=== PATIENT | male | born 1955 | race Caucasian/White ===

== ENCOUNTER 2018-01-01 11:20 | Inpatient (IN) | payer MEDICARE ==
[~2018-01-01] VITALS: Ht 193 cm; Wt 127.0 kg
--- OUTSIDE RECORDS SUMMARY | 2018-01-01 11:22 | XMS REPORT ---
Author Author [facility] [place] Unavailable Care Team Providers Care Head Animal Trainer Name Role Phone STEFANIE ACOSTA Unavailable Unavailable Problems This patient has no known problems. Allergies, Adverse Reactions, Alerts This patient has no known allergies or adverse reactions. Medications This patient has no known medications. Results Test Description Test Time Test Comments Text Results Atomic Results Result Comments POCT-GLUCOSE METER 2016-10-22 13:31:00 POC-GLUCOSE METER (BEAKER) (test vwlv=8013) 119 mg/dL 70-110 TESTED AT [address] [address] POCT-GLUCOSE [id number] 08:43:00* Test Item Value Reference Range Comments POC-GLUCOSE METER (BEAKER) (test ywpj=2303) 137 mg/dL 70-110 TESTED AT [address] [address] POCT-GLUCOSE [id number] 20:56:00* Test Item Value Reference Range Comments POC-GLUCOSE METER (BEAKER) (test uemp=5616) 249 mg/dL 70-110 TESTED AT [address] [address] POCT-GLUCOSE [id number] 16:51:00* Test Item Value Reference Range Comments POC-GLUCOSE METER (BEAKER) (test gkmv=9448) 232 mg/dL 70-110 TESTED AT [address] [address] POCT-GLUCOSE [id number] 11:39:00* Test Item Value Reference Range Comments POC-GLUCOSE METER (BEAKER) (test euyn=2963) 166 mg/dL 70-110 TESTED AT [address] [address] POCT-GLUCOSE [id number] 08:12:00* Test Item Value Reference Range Comments POC-GLUCOSE METER (BEAKER) (test wptv=6358) 70 mg/dL 70-110 TESTED AT [address] [address] POCT-GLUCOSE [id number] 21:56:00* Test Item Value Reference Range Comments POC-GLUCOSE METER (BEAKER) (test zgud=8030) 245 mg/dL 70-110 TESTED AT [facility] [address] [facility] [address] POCT-GLUCOSE [id number] 18:39:00* Test Item Value Reference Range Comments POC-GLUCOSE METER (BEAKER) (test yvnf=4098) 77 mg/dL 70-110 TESTED AT [address] [address] POCT-GLUCOSE [id number] 12:30:00* Test Item Value Reference Range Comments POC-GLUCOSE METER (BEAKER) (test bpjz=1553) 88 mg/dL 70-110 TESTED AT [address] [address] POCT-GLUCOSE [id number] 08:33:00* Test Item Value Reference Range Comments POC-GLUCOSE METER (BEAKER) (test beix=3645) 91 mg/dL 70-110 TESTED AT [address] [address] BASIC METABOLIC [id number] 05:38:00* Test Item Value Reference Range Comments SODIUM (BEAKER) (test wkze=863) 136 meq/L 136-145 POTASSIUM (BEAKER) (test dwvx=581) 4.5 meq/L 3.5-5.1 CHLORIDE (BEAKER) (test zvxh=720) 103 meq/L 98-107 CO2 (BEAKER) (test lhfo=236) 26 meq/L 22-29 BLOOD UREA NITROGEN (BEAKER) (test ljch=946) 12 mg/dL 7-21 CREATININE (BEAKER) (test iqrt=206) 0.75 mg/dL 0.57-1.25 GLUCOSE RANDOM (BEAKER) (test mdin=484) 116 mg/dL 70-105 CALCIUM (BEAKER) (test keij=454) 8.7 mg/dL 8.4-10.2 EGFR (BEAKER) (test sisz=0294) mL/min/1.73 sq m INSUFFICIENT CLINICAL DATA TO CALCULATE ESTIMATED GFR. CBC W/PLT COUNT & AUTO [id number] 05:37:00* Test Item Value Reference Range Comments WHITE BLOOD CELL COUNT (BEAKER) (test vyfm=958) 10.8 K/ L 4.0-10.0 RED BLOOD CELL COUNT (BEAKER) (test ohra=057) 4.11 M/ L 4.20-5.80 HEMOGLOBIN (BEAKER) (test kjqi=885) 13.2 GM/DL 13.0-16.8 HEMATOCRIT (BEAKER) (test xgim=108) 39.9 % 40.0-50.0 MEAN CORPUSCULAR VOLUME (BEAKER) (test fqta=301) 96.9 fL 82.0-98.0 MEAN CORPUSCULAR HEMOGLOBIN (BEAKER) (test thnx=859) 32.2 pg 27.0-33.0 MEAN CORPUSCULAR HEMOGLOBIN CONC (BEAKER) (test caiz=674) 33.2 GM/DL 32.0- 36.0 RED CELL DISTRIBUTION WIDTH (BEAKER) (test silh=094) 11.8 % 10.3-14.2 PLATELET COUNT (BEAKER) (test hljl=229) 475 K/CU MM 150-430 MEAN PLATELET VOLUME (BEAKER) (test iyuv=706) 6.5 fL 6.5-10.5 NUCLEATED RED BLOOD CELLS (BEAKER) (test vgwj=914) 0 /100 WBC 0-0 NEUTROPHILS RELATIVE PERCENT (BEAKER) (test wfza=420) 71 % LYMPHOCYTES RELATIVE PERCENT (BEAKER) (test oiws=386) 21 % MONOCYTES RELATIVE PERCENT (BEAKER) (test szfz=084) 6 % EOSINOPHILS RELATIVE PERCENT (BEAKER) (test omqp=347) 2 % BASOPHILS RELATIVE PERCENT (BEAKER) (test eeqa=714) 0 % NEUTROPHILS ABSOLUTE COUNT (BEAKER) (test hmob=375) 7.63 K/ L 1.80-8.00 LYMPHOCYTES ABSOLUTE COUNT (BEAKER) (test txju=947) 2.28 K/ L 1.48-4.50 MONOCYTES ABSOLUTE COUNT (BEAKER) (test rlct=414) 0.65 K/ L 0.00-1.30 EOSINOPHILS ABSOLUTE COUNT (BEAKER) (test gwgh=766) 0.16 K/ L 0.00-0.50 BASOPHILS ABSOLUTE COUNT (BEAKER) (test sxxo=489) 0.05 K/ L 0.00-0.20 [id number] 05:35:00* Test Item Value Reference Range Comments MAGNESIUM (BEAKER) (test aivz=599) 1.7 mg/dL 1.6-2.6 POCT-GLUCOSE [id number] 22:16:00* Test Item Value Reference Range Comments POC-GLUCOSE METER (BEAKER) (test optz=8892) 117 mg/dL 70-110 TESTED AT [address] [address] POCT-GLUCOSE [id number] 20:09:00* Test Item Value Reference Range Comments POC-GLUCOSE METER (BEAKER) (test rrqs=7795) 210 mg/dL 70-110 TESTED AT [address] [address] POCT-GLUCOSE [id number] 16:15:00* Test Item Value Reference Range Comments POC-GLUCOSE METER (BEAKER) (test gtwd=8036) 80 mg/dL 70-110 TESTED AT [address] [address] POCT-GLUCOSE [id number] 12:26:00* Test Item Value Reference Range Comments POC-GLUCOSE METER (BEAKER) (test peqd=2933) 137 mg/dL 70-110 TESTED AT [place] [id number] BLOOD [id number] 10:00:00* Test Item Value Reference Range Comments CULTURE (BEAKER) (test cyeq=2128) No growth in 5 days BLOOD [id number] 10:00:00* Test Item Value Reference Range Comments CULTURE (BEAKER) (test jdjq=7959) No growth in 5 days POCT-GLUCOSE [id number] 08:23:00* Test Item Value Reference Range Comments POC-GLUCOSE METER (BEAKER) (test gsdc=5229) 185 mg/dL 70-110 TESTED AT [address] [address] BASIC METABOLIC [id number] 05:33:00* Test Item Value Reference Range Comments SODIUM (BEAKER) (test wmmu=222) 134 meq/L 136-145 POTASSIUM (BEAKER) (test yziq=628) 4.4 meq/L 3.5-5.1 CHLORIDE (BEAKER) (test ggey=438) 104 meq/L 98-107 CO2 (BEAKER) (test tdfg=463) 23 meq/L 22-29 BLOOD UREA NITROGEN (BEAKER) (test wtlc=282) 11 mg/dL 7-21 CREATININE (BEAKER) (test xauz=110) 0.78 mg/dL 0.57-1.25 GLUCOSE RANDOM (BEAKER) (test piok=498) 232 mg/dL 70-105 CALCIUM (BEAKER) (test bypd=365) 8.4 mg/dL 8.4-10.2 EGFR (BEAKER) (test uwbr=6099) mL/min/1.73 sq m INSUFFICIENT CLINICAL DATA TO CALCULATE ESTIMATED GFR. CBC (HEMOGRAM ONLY)2016-10-19 05:17:00* Test Item Value Reference Range Comments WHITE BLOOD CELL COUNT (BEAKER) (test kitj=818) 9.9 K/ L 4.0-10.0 RED BLOOD CELL COUNT (BEAKER) (test uchs=750) 3.86 M/ L 4.20-5.80 HEMOGLOBIN (BEAKER) (test ljcx=038) 12.4 GM/DL 13.0-16.8 HEMATOCRIT (BEAKER) (test wmlz=279) 36.7 % 40.0-50.0 MEAN CORPUSCULAR VOLUME (BEAKER) (test vwhs=527) 95.3 fL 82.0-98.0 MEAN CORPUSCULAR HEMOGLOBIN (BEAKER) (test wfxa=699) 32.3 pg 27.0-33.0 MEAN CORPUSCULAR HEMOGLOBIN CONC (BEAKER) (test yudq=851) 33.9 GM/DL 32.0- 36.0 RED CELL DISTRIBUTION WIDTH (BEAKER) (test hzkw=038) 12.5 % 10.3-14.2 PLATELET COUNT (BEAKER) (test qzcp=910) 382 K/CU MM 150-430 MEAN PLATELET VOLUME (BEAKER) (test vlkx=704) 6.8 fL 6.5-10.5 NUCLEATED RED BLOOD CELLS (BEAKER) (test vblx=194) 0 /100 WBC 0-0 0.00POCT-GLUCOSE [id number] 23:05:00* Test Item Value Reference Range Comments POC-GLUCOSE METER (BEAKER) (test skvl=5582) 212 mg/dL 70-110 TESTED AT [address] [address] POCT-GLUCOSE [id number] 17:19:00* Test Item Value Reference Range Comments POC-GLUCOSE METER (BEAKER) (test wedb=7060) 182 mg/dL 70-110 TESTED AT [address] [address] POCT-GLUCOSE [id number] 11:56:00* Test Item Value Reference Range Comments POC-GLUCOSE METER (BEAKER) (test ueek=3812) 132 mg/dL 70-110 TESTED AT [facility] [address] [facility] [address] POCT-GLUCOSE [id number] 07:35:00* Test Item Value Reference Range Comments POC-GLUCOSE METER (BEAKER) (test kgha=2309) 107 mg/dL 70-110 TESTED AT [address] [address] BASIC METABOLIC [id number] 04:09:00* Test Item Value Reference Range Comments SODIUM (BEAKER) (test ziaz=489) 134 meq/L 136-145 POTASSIUM (BEAKER) (test cbeq=746) 4.5 meq/L 3.5-5.1 CHLORIDE (BEAKER) (test gkes=909) 103 meq/L 98-107 CO2 (BEAKER) (test dzlo=710) 23 meq/L 22-29 BLOOD UREA NITROGEN (BEAKER) (test vfmc=036) 12 mg/dL 7-21 CREATININE (BEAKER) (test jsst=794) 0.78 mg/dL 0.57-1.25 GLUCOSE RANDOM (BEAKER) (test jqiq=399) 155 mg/dL 70-105 CALCIUM (BEAKER) (test rfpb=925) 8.4 mg/dL 8.4-10.2 EGFR (BEAKER) (test hhqw=5682) mL/min/1.73 sq m INSUFFICIENT CLINICAL DATA TO CALCULATE ESTIMATED GFR. [id number] 04:08:00* Test Item Value Reference Range Comments MAGNESIUM (BEAKER) (test olkb=396) 1.7 mg/dL 1.6-2.6 CBC (HEMOGRAM ONLY)2016-10-18 03:57:00* Test Item Value Reference Range Comments WHITE BLOOD CELL COUNT (BEAKER) (test ssrh=738) 9.2 K/ L 4.0-10.0 RED BLOOD CELL COUNT (BEAKER) (test cvfg=999) 3.93 M/ L 4.20-5.80 HEMOGLOBIN (BEAKER) (test nhpc=828) 12.4 GM/DL 13.0-16.8 HEMATOCRIT (BEAKER) (test huyr=069) 37.9 % 40.0-50.0 MEAN CORPUSCULAR VOLUME (BEAKER) (test tdih=617) 96.5 fL 82.0-98.0 MEAN CORPUSCULAR HEMOGLOBIN (BEAKER) (test tqvj=675) 31.7 pg 27.0-33.0 MEAN CORPUSCULAR HEMOGLOBIN CONC (BEAKER) (test vjff=270) 32.8 GM/DL 32.0- 36.0 RED CELL DISTRIBUTION WIDTH (BEAKER) (test gboq=152) 11.6 % 10.3-14.2 PLATELET COUNT (BEAKER) (test qbhu=789) 351 K/CU MM 150-430 MEAN PLATELET VOLUME (BEAKER) (test ibww=654) 7.0 fL 6.5-10.5 NUCLEATED RED BLOOD CELLS (BEAKER) (test fzdv=470) 0 /100 WBC 0-0 0.00POCT-GLUCOSE [id number] 22:21:00* Test Item Value Reference Range Comments POC-GLUCOSE METER (BEAKER) (test xmja=3516) 152 mg/dL 70-110 TESTED AT [place] [address] POCT-GLUCOSE [id number] 17:41:00* Test Item Value Reference Range Comments POC-GLUCOSE METER (BEAKER) (test tfkt=3682) 114 mg/dL 70-110 TESTED AT [place] [address] POCT-GLUCOSE [id number] 11:52:00* Test Item Value Reference Range Comments POC-GLUCOSE METER (BEAKER) (test hqdw=6819) 149 mg/dL 70-110 TESTED AT [place] [address] POCT-GLUCOSE [id number] 07:34:00* Test Item Value Reference Range Comments POC-GLUCOSE METER (BEAKER) (test kozf=5780) 85 mg/dL 70-110 TESTED AT [place] [address] BASIC METABOLIC [id number] 03:51:00* Test Item Value Reference Range Comments SODIUM (BEAKER) (test amdf=486) 132 meq/L 136-145 POTASSIUM (BEAKER) (test fapi=278) 4.4 meq/L 3.5-5.1 CHLORIDE (BEAKER) (test ozrs=267) 102 meq/L 98-107 CO2 (BEAKER) (test mhpf=005) 21 meq/L 22-29 BLOOD UREA NITROGEN (BEAKER) (test dneh=504) 12 mg/dL 7-21 CREATININE (BEAKER) (test fpts=624) 0.77 mg/dL 0.57-1.25 GLUCOSE RANDOM (BEAKER) (test yukk=406) 179 mg/dL 70-105 CALCIUM (BEAKER) (test fpcj=105) 8.1 mg/dL 8.4-10.2 EGFR (BEAKER) (test gprl=2063) mL/min/1.73 sq m INSUFFICIENT CLINICAL DATA TO CALCULATE ESTIMATED GFR. CBC (HEMOGRAM ONLY)2016-10-17 03:46:00* Test Item Value Reference Range Comments WHITE BLOOD CELL COUNT (BEAKER) (test zqxd=003) 9.8 K/ L 4.0-10.0 RED BLOOD CELL COUNT (BEAKER) (test adzv=824) 3.70 M/ L 4.20-5.80 HEMOGLOBIN (BEAKER) (test lecb=498) 12.2 GM/DL 13.0-16.8 HEMATOCRIT (BEAKER) (test hjhf=129) 35.1 % 40.0-50.0 MEAN CORPUSCULAR VOLUME (BEAKER) (test uzzl=619) 94.9 fL 82.0-98.0 MEAN CORPUSCULAR HEMOGLOBIN (BEAKER) (test xyfg=564) 33.0 pg 27.0-33.0 MEAN CORPUSCULAR HEMOGLOBIN CONC (BEAKER) (test bayr=940) 34.7 GM/DL 32.0- 36.0 RED CELL DISTRIBUTION WIDTH (BEAKER) (test mebu=042) 12.7 % 10.3-14.2 PLATELET COUNT (BEAKER) (test awta=910) 289 K/CU MM 150-430 MEAN PLATELET VOLUME (BEAKER) (test ixad=625) 7.5 fL 6.5-10.5 NUCLEATED RED BLOOD CELLS (BEAKER) (test ttwv=248) 0 /100 WBC 0-0 0.00POCT-GLUCOSE [id number] 22:39:00* Test Item Value Reference Range Comments POC-GLUCOSE METER (BEAKER) (test izxs=6365) 233 mg/dL 70-110 TESTED AT [facility] [address] [facility] [address] VANCOMYCIN LEVEL, [id number] 22:20:00* Test Item Value Reference Range Comments VANCOMYCIN TROUGH (BEAKER) (test lgkg=228) 13.0 ug/mL 10.0-20.0 POCT-GLUCOSE [id number] 17:18:00* Test Item Value Reference Range Comments POC-GLUCOSE METER (BEAKER) (test yvcd=9395) 184 mg/dL 70-110 TESTED AT [place] [address] POCT-GLUCOSE [id number] 15:16:00* Test Item Value Reference Range Comments POC-GLUCOSE METER (BEAKER) (test evaa=8769) 80 mg/dL 70-110 TESTED AT [place] [address] [id number] 14:18:00* Test Item Value Reference Range Comments ACTIVATED CLOTTING TIME (BEAKER) (test acnm=280) 229 sec TESTED AT [place] [address] [id number] 14:18:00* Test Item Value Reference Range Comments ACTIVATED CLOTTING TIME (BEAKER) (test ewla=819) 533 sec TESTED AT [place] [address] POCT-GLUCOSE [id number] 12:34:00* Test Item Value Reference Range Comments POC-GLUCOSE METER (BEAKER) (test brgt=7239) 67 mg/dL 70-110 TESTED AT [place] [address] POCT-GLUCOSE [id number] 08:13:00* Test Item Value Reference Range Comments POC-GLUCOSE METER (BEAKER) (test eufc=7667) 71 mg/dL 70-110 TESTED AT [place] [address] POCT-GLUCOSE [id number] 07:20:00* Test Item Value Reference Range Comments POC-GLUCOSE METER (BEAKER) (test ozck=0651) 141 mg/dL 70-110 TESTED AT [place] [address] BASIC METABOLIC [id number] 05:08:00* Test Item Value Reference Range Comments SODIUM (BEAKER) (test lbqg=569) 135 meq/L 136-145 POTASSIUM (BEAKER) (test gogp=431) 3.4 meq/L 3.5-5.1 CHLORIDE (BEAKER) (test jfkp=829) 103 meq/L 98-107 CO2 (BEAKER) (test vxgn=042) 22 meq/L 22-29 BLOOD UREA NITROGEN (BEAKER) (test dvxd=071) 14 mg/dL 7-21 CREATININE (BEAKER) (test utbq=659) 0.71 mg/dL 0.57-1.25 GLUCOSE RANDOM (BEAKER) (test bwln=677) 45 mg/dL 70-105 CALCIUM (BEAKER) (test bmif=666) 8.2 mg/dL 8.4-10.2 EGFR (BEAKER) (test ayst=2399) mL/min/1.73 sq m INSUFFICIENT CLINICAL DATA TO CALCULATE ESTIMATED GFR. VANCOMYCIN LEVEL, [id number] 05:06:00* Test Item Value Reference Range Comments VANCOMYCIN RANDOM (BEAKER) (test xnij=305) 17.5 ug/mL Reference Range: No [id number] 05:05:00* Test Item Value Reference Range Comments MAGNESIUM (BEAKER) (test legg=541) 1.7 mg/dL 1.6-2.6 CBC W/PLT COUNT & AUTO [id number] 04:39:00* Test Item Value Reference Range Comments WHITE BLOOD CELL COUNT (BEAKER) (test sktb=572) 9.3 K/ L 4.0-10.0 RED BLOOD CELL COUNT (BEAKER) (test ezpx=084) 3.95 M/ L 4.20-5.80 HEMOGLOBIN (BEAKER) (test lqou=724) 12.5 GM/DL 13.0-16.8 HEMATOCRIT (BEAKER) (test veok=807) 37.8 % 40.0-50.0 MEAN CORPUSCULAR VOLUME (BEAKER) (test arna=068) 95.9 fL 82.0-98.0 MEAN CORPUSCULAR HEMOGLOBIN (BEAKER) (test lyoo=122) 31.8 pg 27.0-33.0 MEAN CORPUSCULAR HEMOGLOBIN CONC (BEAKER) (test hcnp=236) 33.1 GM/DL 32.0- 36.0 RED CELL DISTRIBUTION WIDTH (BEAKER) (test dunj=338) 11.7 % 10.3-14.2 PLATELET COUNT (BEAKER) (test zcbg=887) 302 K/CU MM 150-430 MEAN PLATELET VOLUME (BEAKER) (test ouep=884) 7.3 fL 6.5-10.5 NUCLEATED RED BLOOD CELLS (BEAKER) (test tnvz=038) 0 /100 WBC 0-0 NEUTROPHILS RELATIVE PERCENT (BEAKER) (test wsmi=387) 71 % LYMPHOCYTES RELATIVE PERCENT (BEAKER) (test iyuz=069) 20 % MONOCYTES RELATIVE PERCENT (BEAKER) (test gmtv=526) 8 % EOSINOPHILS RELATIVE PERCENT (BEAKER) (test qwvt=027) 0 % BASOPHILS RELATIVE PERCENT (BEAKER) (test wrze=206) 1 % NEUTROPHILS ABSOLUTE COUNT (BEAKER) (test hrcv=595) 6.64 K/ L 1.80-8.00 LYMPHOCYTES ABSOLUTE COUNT (BEAKER) (test nhia=598) 1.86 K/ L 1.48-4.50 MONOCYTES ABSOLUTE COUNT (BEAKER) (test ctqm=342) 0.74 K/ L 0.00-1.30 EOSINOPHILS ABSOLUTE COUNT (BEAKER) (test xvaf=127) 0.04 K/ L 0.00-0.50 BASOPHILS ABSOLUTE COUNT (BEAKER) (test wkmi=130) 0.05 K/ L 0.00-0.20 0.00POCT-GLUCOSE [id number] 22:02:00* Test Item Value Reference Range Comments POC-GLUCOSE METER (BEAKER) (test hkwm=6098) 140 mg/dL 70-110 TESTED AT [address] [address] POCT-GLUCOSE [id number] 19:21:00* Test Item Value Reference Range Comments POC-GLUCOSE METER (BEAKER) (test ksph=7888) 113 mg/dL 70-110 TESTED AT [address] [address] POCT-GLUCOSE [id number] 16:23:00* Test Item Value Reference Range Comments POC-GLUCOSE METER (BEAKER) (test rixv=5833) 206 mg/dL 70-110 TESTED AT [address] [address] POCT-GLUCOSE [id number] 12:56:00* Test Item Value Reference Range Comments POC-GLUCOSE METER (BEAKER) (test ruky=0005) 205 mg/dL 70-110 TESTED AT [address] [address] POCT-GLUCOSE [id number] 12:56:00* Test Item Value Reference Range Comments POC-GLUCOSE METER (BEAKER) (test mjhr=8020) 71 mg/dL 70-110 TESTED AT [facility] [address] [facility] [address] VANCOMYCIN LEVEL, [id number] 11:43:00* Test Item Value Reference Range Comments VANCOMYCIN TROUGH (BEAKER) (test zjkz=315) 9.2 ug/mL 10.0-20.0 Please draw vancomycin trough level @930, prior to administering the 1000 dose. Thanks.CBC (HEMOGRAM ONLY)2016-10-15 04:50:00* Test Item Value Reference Range Comments WHITE BLOOD CELL COUNT (BEAKER) (test qegr=103) 10.8 K/ L 4.0-10.0 RED BLOOD CELL COUNT (BEAKER) (test cpya=958) 3.95 M/ L 4.20-5.80 HEMOGLOBIN (BEAKER) (test cnqu=896) 12.8 GM/DL 13.0-16.8 HEMATOCRIT (BEAKER) (test xpru=618) 37.8 % 40.0-50.0 MEAN CORPUSCULAR VOLUME (BEAKER) (test oekh=361) 95.7 fL 82.0-98.0 MEAN CORPUSCULAR HEMOGLOBIN (BEAKER) (test uvbw=403) 32.4 pg 27.0-33.0 MEAN CORPUSCULAR HEMOGLOBIN CONC (BEAKER) (test efse=724) 33.9 GM/DL 32.0- 36.0 RED CELL DISTRIBUTION WIDTH (BEAKER) (test knro=183) 11.7 % 10.3-14.2 PLATELET COUNT (BEAKER) (test okew=038) 282 K/CU MM 150-430 MEAN PLATELET VOLUME (BEAKER) (test uiox=368) 7.5 fL 6.5-10.5 NUCLEATED RED BLOOD CELLS (BEAKER) (test odpe=721) 0 /100 WBC 0-0 0.00BASIC METABOLIC [id number] 04:43:00* Test Item Value Reference Range Comments SODIUM (BEAKER) (test aazn=960) 134 meq/L 136-145 POTASSIUM (BEAKER) (test bdcu=612) 3.9 meq/L 3.5-5.1 CHLORIDE (BEAKER) (test zucn=068) 101 meq/L 98-107 CO2 (BEAKER) (test sxii=455) 25 meq/L 22-29 BLOOD UREA NITROGEN (BEAKER) (test lmyl=427) 23 mg/dL 7-21 CREATININE (BEAKER) (test ccsg=562) 0.80 mg/dL 0.57-1.25 GLUCOSE RANDOM (BEAKER) (test dbrb=285) 76 mg/dL 70-105 CALCIUM (BEAKER) (test eofl=349) 8.5 mg/dL 8.4-10.2 EGFR (BEAKER) (test fqth=9860) mL/min/1.73 sq m INSUFFICIENT CLINICAL DATA TO CALCULATE ESTIMATED GFR. [id number] 04:41:00* Test Item Value Reference Range Comments MAGNESIUM (BEAKER) (test ccuf=939) 1.5 mg/dL 1.6-2.6 POCT-GLUCOSE [id number] 22:22:00* Test Item Value Reference Range Comments POC-GLUCOSE METER (BEAKER) (test iifg=5379) 122 mg/dL 70-110 TESTED AT [facility] [address] [place] [address] URINALYSIS W/ [id number] 19:53:00* Test Item Value Reference Range Comments COLOR (BEAKER) (test lbjm=175) Yellow CLARITY (BEAKER) (test rngn=900) Hazy SPECIFIC GRAVITY UA (BEAKER) (test rbbi=571) 1.020 1.001-1.035 PH UA (BEAKER) (test qstl=601) 5.0 5.0-8.0 PROTEIN UA (BEAKER) (test uhwz=562) 30 mg/dL Negative GLUCOSE UA (BEAKER) (test huvw=284) 300 mg/dL Negative KETONES UA (BEAKER) (test rght=551) Trace Negative BILIRUBIN UA (BEAKER) (test rbeq=767) Negative Negative BLOOD UA (BEAKER) (test qcfa=394) Negative Negative NITRITE UA (BEAKER) (test bvic=102) Negative Negative LEUKOCYTE ESTERASE UA (BEAKER) (test zmsv=692) Negative Negative UROBILINOGEN UA (BEAKER) (test mtjv=928) 0.2 mg/dL 0.2-1.0 RBC UA (BEAKER) (test iaoa=808) 0 /HPF WBC UA (BEAKER) (test gtuo=722) 1 /HPF MUCUS (BEAKER) (test mneu=6769) Rare SQUAMOUS EPITHELIAL (BEAKER) (test zlec=477) 1 /HPF HYALINE CASTS (BEAKER) (test umjf=860) 3 /LPF SOURCE(BEAKER) (test cfsv=3685) POCT-GLUCOSE [id number] 17:36:00* Test Item Value Reference Range Comments POC-GLUCOSE METER (BEAKER) (test arvq=5915) 213 mg/dL 70-110 TESTED AT [facility] [address] [facility] [address] SODIUM, RANDOM [id number] 17:30:00* Test Item Value Reference Range Comments SODIUM URINE (BEAKER) (test dtpv=131) < meq/L Reference Range: No NormalsHEMOGLOBIN [id number] 14:22:00* Test Item Value Reference Range Comments HEMOGLOBIN A1C (BEAKER) (test blfv=000) 13.7 % 4.3-6.1 TROPONIN [id number] 13:31:00* Test Item Value Reference Range Comments TROPONIN I (BEAKER) (test zqbn=737) 0.50 ng/mL 0.00-0.03 Effective 07/17/2014: Reference Range ChangeNew: 0.00-0.03 Previous 0.00- 0.15Troponin I (TnI) levels must be interpreted in the context of the presenting symptoms and the clinical findings. Elevated TnI levels indicate myocardial damage, but are not specific for ischemic heart disease. Elevated TnI levels are seen in patients with other cardiac conditions (including myocarditis and congestive heart failure), and slight TnI elevations occur in patients with other conditions, including sepsis, renal failure, acidosis, acute neurological disease, and persistent tachyarrhythmia.POCT-GLUCOSE [id number] 09:47:00* Test Item Value Reference Range Comments POC-GLUCOSE METER (BEAKER) (test ilnl=9309) 235 mg/dL 70-110 TESTED AT [facility] [address] [facility] [address] HEMOGLOBIN [id number] 08:29:00* Test Item Value Reference Range Comments HEMOGLOBIN A1C (BEAKER) (test uxio=868) 13.5 % 4.3-6.1 TROPONIN [id number] 06:13:00* Test Item Value Reference Range Comments TROPONIN I (BEAKER) (test gtem=321) 0.85 ng/mL 0.00-0.03 Effective 07/17/2014: Reference Range ChangeNew: 0.00-0.03 Previous 0.00- 0.15Troponin I (TnI) levels must be interpreted in the context of the presenting symptoms and the clinical findings. Elevated TnI levels indicate myocardial damage, but are not specific for ischemic heart disease. Elevated TnI levels are seen in patients with other cardiac conditions (including myocarditis and congestive heart failure), and slight TnI elevations occur in patients with other conditions, including sepsis, renal failure, acidosis, acute neurological disease, and persistent tachyarrhythmia.CREATINE KINASE (CK) , TOTAL AND [id number] 06:03:00* Test Item Value Reference Range Comments CREATINE KINASE TOTAL (CRISTYAKER) (test cift=440) 127 U/L 29-200 CREATINE KINASE-MB (BEAKER) (test hktf=882) 6.0 ng/mL 0.0-6.6 CREATINE KINASE-MB INDEX (BEAKER) (test ipyt=901) 4.7 % Effective 07/17/2014: CK-MB Reference Range ChangeNew: 0.0-6.6 Previous: 0.0- 4.9CK-MB Reference Range:<6.7 Normal6.7-10.0 Borderline>10.0 AbnormalPT/[id number] 05:58:00* Test Item Value Reference Range Comments PROTIME (BEAKER) (test inrz=304) 14.2 seconds 11.7-14.7 INR (BEAKER) (test ezog=425) 1.1 <=5.9 PARTIAL THROMBOPLASTIN TIME (BEAKER) (test bphi=982) 36.5 seconds 22.5-36.0 RECOMMENDED COUMADIN/WARFARIN INR THERAPY RANGESSTANDARD DOSE: 2.0 - 3.0 Includes: PROPHYLAXIS for venous thrombosis, systemic embolization; TREATMENT for venous thrombosis and/or pulmonary embolus.HIGH RISK: Target INR is 2.5-3.5 for patients with mechanical heart valves.CBC W/PLT COUNT & AUTO [id number] 05:58:00* Test Item Value Reference Range Comments WHITE BLOOD CELL COUNT (BEAKER) (test uuxu=261) 14.9 K/ L 4.0-10.0 RED BLOOD CELL COUNT (BEAKER) (test lnix=921) 4.55 M/ L 4.20-5.80 HEMOGLOBIN (BEAKER) (test npni=252) 14.0 GM/DL 13.0-16.8 HEMATOCRIT (BEAKER) (test qidm=556) 43.5 % 40.0-50.0 MEAN CORPUSCULAR VOLUME (BEAKER) (test pvoz=531) 95.6 fL 82.0-98.0 MEAN CORPUSCULAR HEMOGLOBIN (BEAKER) (test rarv=819) 30.8 pg 27.0-33.0 MEAN CORPUSCULAR HEMOGLOBIN CONC (BEAKER) (test auvt=102) 32.2 GM/DL 32.0- 36.0 RED CELL DISTRIBUTION WIDTH (BEAKER) (test hunt=038) 11.7 % 10.3-14.2 PLATELET COUNT (BEAKER) (test hpja=160) 342 K/CU MM 150-430 MEAN PLATELET VOLUME (BEAKER) (test milz=096) 8.0 fL 6.5-10.5 NUCLEATED RED BLOOD CELLS (BEAKER) (test kuee=620) 0 /100 WBC 0-0 NEUTROPHILS RELATIVE PERCENT (BEAKER) (test tjbo=561) 78 % LYMPHOCYTES RELATIVE PERCENT (BEAKER) (test vbxr=564) 13 % MONOCYTES RELATIVE PERCENT (BEAKER) (test alki=807) 9 % EOSINOPHILS RELATIVE PERCENT (BEAKER) (test onyl=638) 0 % BASOPHILS RELATIVE PERCENT (BEAKER) (test jlix=287) 0 % NEUTROPHILS ABSOLUTE COUNT (BEAKER) (test fugs=237) 11.60 K/ L 1.80-8.00 LYMPHOCYTES ABSOLUTE COUNT (BEAKER) (test txsm=528) 1.89 K/ L 1.48-4.50 MONOCYTES ABSOLUTE COUNT (BEAKER) (test svsz=126) 1.39 K/ L 0.00-1.30 EOSINOPHILS ABSOLUTE COUNT (BEAKER) (test fkxf=788) 0.00 K/ L 0.00-0.50 BASOPHILS ABSOLUTE COUNT (BEAKER) (test gegx=055) 0.03 K/ L 0.00-0.20 0.00COMPREHENSIVE METABOLIC [id number] 05:57:00* Test Item Value Reference Range Comments TOTAL PROTEIN (BEAKER) (test itmy=626) 6.1 gm/dL 6.0-8.3 ALBUMIN (BEAKER) (test xmxn=6739) 3.1 g/dL 3.5-5.0 ALKALINE PHOSPHATASE (BEAKER) (test vpci=314) 63 U/L 40-150 BILIRUBIN TOTAL (BEAKER) (test oacl=724) 1.0 mg/dL 0.2-1.2 SODIUM (BEAKER) (test ihgi=873) 130 meq/L 136-145 POTASSIUM (BEAKER) (test hysk=232) 5.1 meq/L 3.5-5.1 CHLORIDE (BEAKER) (test yglc=006) 97 meq/L 98-107 CO2 (BEAKER) (test tdiz=104) 22 meq/L 22-29 BLOOD UREA NITROGEN (BEAKER) (test kscz=697) 33 mg/dL 7-21 CREATININE (BEAKER) (test txup=966) 1.35 mg/dL 0.57-1.25 GLUCOSE RANDOM (BEAKER) (test hwai=102) 391 mg/dL 70-105 CALCIUM (BEAKER) (test rnlg=064) 8.8 mg/dL 8.4-10.2 AST (SGOT) (BEAKER) (test kmic=022) 12 U/L 5-34 ALT (SGPT) (BEAKER) (test mrxp=079) 10 U/L 6-55 EGFR (BEAKER) (test ltmr=3626) mL/min/1.73 sq m INSUFFICIENT CLINICAL DATA TO CALCULATE ESTIMATED GFR. POCT-GLUCOSE [id number] 03:09:00* Test Item Value Reference Range Comments POC-GLUCOSE METER (BEAKER) (test vpxb=5332) 375 mg/dL 70-110 TESTED AT [facility] [address] [facility] [address]
--- OUTSIDE RECORDS SUMMARY | 2018-01-01 11:22 | XMS REPORT | Clinical Summary ---
Author Author SWAPNA [facility] Address Unknown Phone Unavailable Care Team Providers Care Mortgage Professional Name Role Phone PCP Unavailable Allergies No Known Allergies Current Medications Prescription Sig. Disp. Refills Start End Date Status Date metFORMIN (GLUCOPHAGE) Take 1,000 mg by mouth 2 Active 1000 MG tablet (two) times daily with breakfast and dinner. aspirin 81 MG EC tablet Take 81 mg by mouth Active daily. omega-3 fatty Take by mouth daily. Active acids-vitamin E 1,000 mg Cap insulin glargine (LANTUS) Use as directed. 10 mL 0 10/22/19 Active 100 unit/mL injection 17 nitroglycerin (NITROSTAT) One tablet every 5 90 tablet 0 10/22/19 0.4 MG SL tablet minutes for maximum of 3 17 18 doses in 15 minutes; Contact physician after the first dose.. insulin lispro (HUMALOG) Inject 0-16 Units 10 mL 0 10/22/19 100 unit/mL injection subcutaneously as needed 17 18 (High blood sugar). 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 10/22/2016 pectoris ([facility]), s/p PCI during this admission DM type 2 (diabetes mellitus, type 2) ([facility]) 10/16/2016 LEXIE (acute kidney injury) ([facility]) 10/16/2016 CKD (chronic kidney disease) 10/16/2016 Cellulitis of leg 10/16/2016 Severe sepsis ([facility]) 10/16/2016 Lichenification 10/16/2016 Bradycardia 10/16/2016 Elevated troponin 10/16/2016 Complete heart block ([facility]) 10/14/2016 Social History Tobacco Use Types Packs/Day Years Used Date Current Every Day Smoker 2 Tobacco Cessation: Ready to Quit: No; Counseling Given: No Alcohol Use Drinks/Week oz/Week Comments No Sex Assigned at Date Recorded Not on file Last Filed Vital Signs Not on file Plan of Treatment Not on file Implants Implanted Type Area Pre K Lead Teacher Device Expiration Model / Identifier Date Serial / Lot Closure Sys Perclose Progl 6fr Cardiovasc N/A: Ganesh AGUILLON LAB:VASC 04/29/2018 04883-01 / [id number] - [id number] ular DEV / Implanted: Qty: 1 on 10/16/2016 by [id number] Segundo Camarillo MD Tyrx Absorbable Antibacterial Cardiovasc Left: [employer] 2016 [id number] / Envelope ular Chest / Implanted: Qty: 1 on 10/19/2016 by [employer] [id number] Segundo Camarillo MD Ingevity Mri Pacemaker N/A: Heart [place] 10/08/2018 [id number] / Implanted: Qty: 1 on 10/19/2016 by [employer] [id number] / Segundo Camarillo MD Ingevity Mri Pacemaker N/A: Heart [place] 10/05/2018 [id number] / Implanted: Qty: 1 on 10/19/2016 by [employer] [id number] / Segundo Camarillo MD Accolade Mri Dr Pacemakers N/A: Chest [place]ON 09/15/2018 L311 / Implanted: Qty: 1 on 10/19/2016 by [employer] I [id number] / Segundo Camarillo MD Results Not on fileafter 12/31/2016
[2018-01-01 12:40] LABS: BASOPHILS # (AUTO) 0.1 (0.0-0.1); BASOPHILS % 0.8 % (0.0-1.0); EOSINOPHILS # (AUTO) 0.1 (0.0-0.4); EOSINOPHILS % 1.3 % (0.0-6.0); HEMATOCRIT 35.6 % (38.2-49.6); HEMOGLOBIN 11.9 g/dL (14.0-18.0); LYMPHOCYTES # (AUTO) 1.1 (1.0-3.2); LYMPHOCYTES % 18.4 % (18.0-39.1); MEAN CORPUSCULAR HEMOGLOBIN 29.8 pg (28-32); MEAN CORPUSCULAR HGB CONC 33.4 g/dL (31-35); MONOCYTES # (AUTO) 0.5 (0.2-0.8); NEUTROPHILS # (AUTO) 4.4 (2.1-6.9); PLATELET COUNT 393 x10e3/uL (140-360); RED CELL DISTRIBUTION WIDTH 12.5 % (11.7-14.4)
[2018-01-01 12:50] LABS: INR 1.03; PROTHROMBIN TIME 12.7 seconds (11.9-14.5)
[2018-01-01 12:51] LABS: PARTIAL THROMBOPLASTIN TIME 27.9 seconds (23.8-35.5)
[2018-01-01 13:01] LABS: ALANINE AMINOTRANSFERASE 12 IU/L (0-55); ALBUMIN 3.1 g/dL (3.5-5.0); ALBUMIN/GLOBULIN RATIO 0.7 (0.8-2.0); ALKALINE PHOSPHATASE 61 IU/L (40-150); ANION GAP 16.1 mmol/L (8-16); BLOOD UREA NITROGEN 22 mg/dL (7-26); BUN/CREATININE RATIO 21 (6-25); CALCIUM 9.5 mg/dL (8.4-10.2); CARBON DIOXIDE 25 mmol/L (22-29); CHLORIDE 97 mmol/L (98-107); CREATINE KINASE 102 IU/L (30-200); CREATININE, SERUM 1.05 mg/dL (0.72-1.25); EST GLOMERULAR FILTRATION RATE > 60 ML/MIN (60-); GLUCOSE 355 mg/dL (74-118); MAGNESIUM 1.4 MG/DL (1.3-2.1); POTASSIUM 4.1 mmol/L (3.5-5.1); SODIUM 134 mmol/L (136-145)
[2018-01-01] MEDS ORDERED: INSULIN REGULAR, HUMAN 100 UNIT/1 ML 3ML VIAL SQ ONE (13:45)
[2018-01-01] MEDS ORDERED: SODIUM CHLORIDE 0.9% 500ML 500 ML IV ONE (13:45)
--- NOTE | 2018-01-01 14:24 | Diagnostic Imaging Report ---
EXAMINATION: CHEST SINGLE (PORTABLE) INDICATION: \S\cough \[id number] \S\1345 COMPARISON: Chest radiograph 10/13/2016 FINDINGS: AP view TUBES and LINES: 2-lead pacemaker device overlying the left upper hemithorax with leads overlying the right atrial right ventricle, new since prior exam. LUNGS: Lungs are well inflated. Bilateral interstitial edema. Subsegmental atelectasis in both lung bases. PLEURA: No pleural effusion or pneumothorax. HEART AND MEDIASTINUM: Mild prominence of the cardiac silhouette. BONES AND SOFT TISSUES: No acute osseous lesion. Mild to moderate elevation of the left hemidiaphragm, worse since prior exam. UPPER ABDOMEN: No free air under the diaphragm. IMPRESSION: Bilateral interstitial edema. Worsening elevation of the left hemidiaphragm may reflect paralysis or eventration. Signed by: Dr. Marisa Kelsey M.D. on 01/01/2018 2:20 PM
--- OUTSIDE RECORDS SUMMARY | 2018-01-01 14:59 | XMS REPORT | Clinical Summary ---
Author Author SWAPNA TalkSessionId[facility] Falls [facility] HospitalSapio Systems [facility]St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 10/22/2016 pectoris ([facility]), s/p PCI during this admission DM type 2 (diabetes mellitus, type 2) ([facility]) 10/16/2016 LEXIE (acute kidney injury) ([facility]) 10/16/2016 CKD (chronic kidney disease) 10/16/2016 Cellulitis of leg 10/16/2016 Severe sepsis ([facility]) 10/16/2016 Lichenification 10/16/2016 Bradycardia 10/16/2016 Elevated troponin 10/16/2016 Complete heart block ([facility]) 10/14/2016 Social History Tobacco Use Types Packs/Day Years Used Date Current Every Day Smoker 2 Tobacco Cessation: Ready to Quit: No; Counseling Given: No Alcohol Use Drinks/Week oz/Week Comments No Sex Assigned at Date Recorded Not on file Last Filed Vital Signs Not on file Plan of Treatment Not on file Implants Implanted Type Area Piggyback Clerk Device Expiration Model / Identifier Date Serial / Lot Closure Sys Perclose Progl 6fr Cardiovasc N/A: Ganesh AGUILLON LAB:VASC 04/29/2018 58128-88 / [id number] - [id number] ular DEV / Implanted: Qty: 1 on 10/16/2016 by [id number] Segundo Camarillo MD Tyrx Absorbable Antibacterial Cardiovasc Left: TYR[employer] 2016 [id number] / Envelope ular Chest / Implanted: Qty: 1 on 10/19/2016 by [employer] [id number] Segundo Camarillo MD Ingevity Mri Pacemaker N/A: Heart B[place]ON 10/08/2018 [id number] / Implanted: Qty: 1 on 10/19/2016 by [employer] [id number] / Segundo Camarillo MD Ingevity Mri Pacemaker N/A: Heart [place]ON 10/05/2018 [id number] / Implanted: Qty: 1 on 10/19/2016 by [employer] [id number] / Segundo Camarillo MD Accolade Mri Dr Pacemakers N/A: Chest B[place]ON 09/15/2018 L311 / Implanted: Qty: 1 on 10/19/2016 by [employer] [id number] / Segundo Camarillo MD Results Not on fileafter 12/31/2016
[2018-01-01] MEDS ORDERED: DEXTROSE 50% SYRINGE 50 ML IV PRN (15:00)
[2018-01-01] MEDS: PIPER-TAZ 3.375 GM 50 ML IV SCH ×2 (15:04→17:13)
[2018-01-01 15:21] LABS: BILIRUBIN,URINE NEGATIVE (NEGATIVE); CLARITY,URINE SL CLOUDY (CLEAR); COLOR,URINE YELLOW (YELLOW); KETONES,URINE 1+ (NEGATIVE); LEUKOCYTE ESTERASE ,URINE NEGATIVE (NEGATIVE); NITRITE,URINE NEGATIVE (NEGATIVE); PROTEIN,URINE DIPSTICK 1+ (NEGATIVE); URINE UROBILINOGEN 0.2 mg/dL (0.2 - 1)
[2018-01-01] MEDS ORDERED: SODIUM CHLORIDE 0.9% 250ML 0 ML ONE (16:30)
[2018-01-01] MEDS: INSULIN REGULAR, HUMAN 100 UNIT/1 ML 3ML VIAL SQ SCH ×2 (16:30→21:39)
[2018-01-01 16:31] VITALS: BP 157/83
[2018-01-01] MEDS ORDERED: ASPIR 8181 MG (17:08)
[2018-01-01] MEDS ORDERED: LISINOPRIL10 MG PO (17:08)
[2018-01-01] MEDS ORDERED: METFORMIN HCL500 MG PO (17:08)
[2018-01-01] MEDS ORDERED: CLOPIDOGREL75 MG PO (17:08)
[2018-01-01] MEDS ORDERED: LOVASTATIN20 MG PO (17:08)
[2018-01-01 17:26] VITALS: BP 157/83
[2018-01-01 17:40] VITALS: BP 157/83
[2018-01-01 17:48] VITALS: BP 157/83
[2018-01-01 20:00] VITALS: BP 120/68
[2018-01-01] MEDS ORDERED: ASPIRIN 81 MG CHEW TAB PO SCH (21:00)
[2018-01-01] MEDS: METFORMIN HCL 500 MG TAB PO SCH (21:38)
[2018-01-01] MEDS: LISINOPRIL 2.5 MG TAB PO SCH (21:38)
[2018-01-01] MEDS: CLOPIDOGREL BISULFATE 75 MG TAB PO SCH (21:38)
[2018-01-01] MEDS ORDERED: SODIUM CHLORIDE 0.9% 250ML 250 ML ONE (23:01)
[2018-01-02] VITALS (8 sets, daily range): BP systolic 122–138; BP diastolic 68–76
[2018-01-02] MEDS: PIPER-TAZ 3.375 GM 50 ML IV SCH ×4 (00:31→17:03)
[2018-01-02] MEDS: VANCOMYCIN 1GM/NS 250 ML 250 ML IV SCH ×3 (01:31→23:15)
[2018-01-02 01:58] LABS: CREATINE KINASE MB 2.7 ng/mL (0-5.0)
[2018-01-02] MEDS ORDERED: ACETAMINOPHEN 325 MG TAB PO PRN (05:15)
[2018-01-02] MEDS: INSULIN REGULAR, HUMAN 100 UNIT/1 ML 3ML VIAL SQ SCH ×4 (07:30→21:58)
[2018-01-02 07:32] LABS: BASOPHILS # (AUTO) 0.1 (0.0-0.1); BASOPHILS % 0.9 % (0.0-1.0); EOSINOPHILS # (AUTO) 0.1 (0.0-0.4); EOSINOPHILS % 1.6 % (0.0-6.0); HEMATOCRIT 31.7 % (38.2-49.6); HEMOGLOBIN 10.7 g/dL (14.0-18.0); LYMPHOCYTES # (AUTO) 1.4 (1.0-3.2); LYMPHOCYTES % 23.3 % (18.0-39.1); MEAN CORPUSCULAR HEMOGLOBIN 30.1 pg (28-32); MEAN CORPUSCULAR HGB CONC 33.8 g/dL (31-35); MONOCYTES # (AUTO) 0.6 (0.2-0.8); MONOCYTES % 9.5 % (4.4-11.3); NEUTROPHILS # (AUTO) 3.7 (2.1-6.9); NEUTROPHILS % 64.4 % (38.7-80.0); PLATELET COUNT 328 x10e3/uL (140-360); RED BLOOD COUNT 3.56 x10e6/uL (4.3-5.7); RED CELL DISTRIBUTION WIDTH 12.5 % (11.7-14.4)
[2018-01-02 07:59] LABS: ALANINE AMINOTRANSFERASE 9 IU/L (0-55); ALBUMIN 2.6 g/dL (3.5-5.0); ALBUMIN/GLOBULIN RATIO 0.7 (0.8-2.0); ALKALINE PHOSPHATASE 50 IU/L (40-150); BLOOD UREA NITROGEN 14 mg/dL (7-26); BUN/CREATININE RATIO 17 (6-25); CALCIUM 8.7 mg/dL (8.4-10.2); CARBON DIOXIDE 26 mmol/L (22-29); CHLORIDE 101 mmol/L (98-107); CREATININE, SERUM 0.81 mg/dL (0.72-1.25); EST GLOMERULAR FILTRATION RATE > 60 ML/MIN (60-); GLUCOSE 162 mg/dL (74-118); MAGNESIUM 1.3 MG/DL (1.3-2.1); SODIUM 136 mmol/L (136-145)
[2018-01-02 08:22] LABS: CREATINE KINASE MB 2.5 ng/mL (0-5.0)
[2018-01-02] MEDS: METFORMIN HCL 500 MG TAB PO SCH ×2 (08:42→17:03)
[2018-01-02] MEDS: LISINOPRIL 2.5 MG TAB PO SCH (08:42)
[2018-01-02] MEDS: CLOPIDOGREL BISULFATE 75 MG TAB PO SCH (08:42)
[2018-01-02] MEDS: ASPIRIN 325 MG TAB EC PO SCH (08:42)
[2018-01-03] MEDS: PIPER-TAZ 3.375 GM 50 ML IV SCH ×5 (00:47→23:20)
[2018-01-03 01:02] VITALS: BP 100/50
[2018-01-03 01:05] VITALS: BP 121/58
[2018-01-03 05:45] VITALS: BP 140/67
[2018-01-03 08:00] VITALS: BP 136/65
[2018-01-03] MEDS: INSULIN REGULAR, HUMAN 100 UNIT/1 ML 3ML VIAL SQ SCH ×4 (08:30→20:50)
[2018-01-03] MEDS: ASPIRIN 325 MG TAB EC PO SCH (09:01)
[2018-01-03] MEDS: LISINOPRIL 2.5 MG TAB PO SCH (09:01)
[2018-01-03] MEDS: METFORMIN HCL 500 MG TAB PO SCH ×2 (09:01→17:36)
[2018-01-03] MEDS: CLOPIDOGREL BISULFATE 75 MG TAB PO SCH (09:01)
[2018-01-03 12:00] VITALS: BP 128/64
[2018-01-03] MEDS: VANCOMYCIN 1GM/NS 250 ML 250 ML IV SCH ×2 (12:48→23:02)
[2018-01-03 20:00] VITALS: BP 136/74
[2018-01-03] MEDS ORDERED: LOPERAMIDE HCL 2 MG CAP PO PRN (20:30)
[2018-01-04] VITALS: BP 115/56
[2018-01-04] MEDS: PIPER-TAZ 3.375 GM 50 ML IV SCH ×3 (05:25→17:18)
[2018-01-04] MEDS: INSULIN REGULAR, HUMAN 100 UNIT/1 ML 3ML VIAL SQ SCH ×4 (08:00→21:10)
[2018-01-04 08:38] VITALS: BP 125/70
[2018-01-04] MEDS: METFORMIN HCL 500 MG TAB PO SCH ×2 (09:00→17:18)
[2018-01-04] MEDS: CLOPIDOGREL BISULFATE 75 MG TAB PO SCH (09:35)
[2018-01-04] MEDS: LISINOPRIL 2.5 MG TAB PO SCH (09:35)
[2018-01-04] MEDS: ASPIRIN 325 MG TAB EC PO SCH (09:35)
[2018-01-04 12:14] VITALS: BP 139/65
[2018-01-04] MEDS: VANCOMYCIN 1GM/NS 250 ML 250 ML IV SCH ×2 (12:38→22:59)
[2018-01-04 16:00] VITALS: BP 130/72
[2018-01-04 20:00] VITALS: BP 115/60
[2018-01-05] VITALS: BP 128/59
[2018-01-05] MEDS: PIPER-TAZ 3.375 GM 50 ML IV SCH ×4 (00:45→17:09)
[2018-01-05] MEDS: LISINOPRIL 2.5 MG TAB PO SCH (07:54)
[2018-01-05] MEDS: METFORMIN HCL 500 MG TAB PO SCH ×2 (07:54→17:09)
[2018-01-05] MEDS: CLOPIDOGREL BISULFATE 75 MG TAB PO SCH (07:54)
[2018-01-05] MEDS: ASPIRIN 325 MG TAB EC PO SCH (07:54)
[2018-01-05] MEDS: INSULIN REGULAR, HUMAN 100 UNIT/1 ML 3ML VIAL SQ SCH ×4 (07:54→21:42)
[2018-01-05 07:55] VITALS: BP 139/74
[2018-01-05 08:00] VITALS: BP 139/74
[2018-01-05 11:48] VITALS: BP 144/73
[2018-01-05] MEDS: VANCOMYCIN 1GM/NS 250 ML 250 ML IV SCH ×2 (13:06→23:41)
[2018-01-05 16:00] VITALS: BP 118/62
[2018-01-05 20:05] VITALS: BP 116/61
[2018-01-06 00:35] VITALS: BP 108/75
[2018-01-06] MEDS: PIPER-TAZ 3.375 GM 50 ML IV SCH ×2 (01:22→06:39)
[2018-01-06 05:52] VITALS: BP 115/55
[2018-01-06] MEDS ORDERED: LEVAQUIN500 MG PO (07:36)
[2018-01-06 08:01] VITALS: BP 117/61
[2018-01-06] MEDS: METFORMIN HCL 500 MG TAB PO SCH (08:17)
[2018-01-06] MEDS: LISINOPRIL 2.5 MG TAB PO SCH (08:17)
[2018-01-06 08:18] VITALS: BP 117/61
[2018-01-06] MEDS: INSULIN REGULAR, HUMAN 100 UNIT/1 ML 3ML VIAL SQ SCH (08:18)
[2018-01-06] MEDS: ASPIRIN 325 MG TAB EC PO SCH (08:18)
== END 2018-01-06 08:47 | disposition home or self-care (01) | DRG 603 ==
LOC: ER 11:20 → ERHOLD 14:53 → MED/SURG2 16:10
PROVIDERS: ADMIT Internal Medicine; ATTEND Internal Medicine
DX: L03.116 Cellulitis of left lower limb (principal); E87.1 Hypo-osmolality and hyponatremia; L03.115 Cellulitis of right lower limb; I10 Essential (primary) hypertension; I25.10 Atherosclerotic heart disease of native coronary artery without angina pectoris; D64.9 Anemia, unspecified; Z95.810 Presence of automatic (implantable) cardiac defibrillator; Z87.891 Personal history of nicotine dependence; E10.65 Type 1 diabetes mellitus with hyperglycemia; Z79.4 Long term (current) use of insulin
CPT/HCPCS: 36415; 71045; 80053; 80202; 81001; 82550; 82553; 82948; 83605; 83735; 83880; 84484; 85025; 85610; 85730; 87040; 93970; 99284; J2543; J3370; J7040; J7050

== ENCOUNTER 2019-02-03 02:25 | Emergency (ER) | payer MEDICARE ==
[~2019-02-03] VITALS: Ht 193 cm; Wt 127.0 kg
[~2019-02-03 02:25] MED LIST: ASPIR 8181 MG; CLOPIDOGREL75 MG PO; LEVAQUIN500 MG PO; LISINOPRIL10 MG PO; LOVASTATIN20 MG PO; METFORMIN HCL500 MG PO
--- OUTSIDE RECORDS SUMMARY | 2019-02-03 02:28 | XMS REPORT | Clinical Summary ---
Author Author SWAPNA [facility] Address Unknown Phone Unavailable Care Team Providers Care Respiratory Clinician Name Role Phone Sharpless PCP Allergies No Known Allergies Medications End Date Status Medication Sig Dispensed Refills Start Date Active metFORMIN (GLUCOPHAGE) Take 1,000 mg 0 1000 MG tablet by mouth 2 (two) times daily with breakfast and dinner. Active aspirin 81 MG EC tablet Take 81 mg by 0 mouth daily. Active omega-3 fatty Take by mouth 0 acids-vitamin E 1,000 mg daily. Cap Active insulin glargine (LANTUS) Use as 10 mL 0 100 unit/mL injection directed. 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 10/22/2016 pectoris ([facility]), s/p PCI during this admission DM type 2 (diabetes mellitus, type 2) 10/16/2016 LEXIE (acute kidney injury) 10/16/2016 CKD (chronic kidney disease) 10/16/2016 Cellulitis of leg 10/16/2016 Severe sepsis 10/16/2016 Lichenification 10/16/2016 Bradycardia 10/16/2016 Elevated troponin 10/16/2016 Complete heart block 10/14/2016 Social History Date Tobacco Use Types Packs/Day Years Used Current Every Day Smoker 2 Tobacco Cessation: Ready to Quit: No; Counseling Given: No Alcohol Use Drinks/Week oz/Week Comments No Sex Assigned at Date Recorded Not on file Industry Job Start Date Occupation Not on file Not on file Not on file Travel End Travel History Travel Start No recent travel history available. Last Filed Vital Signs Not on file Plan of Treatment Not on file Implants Device Identifier Shelf Expiration Date Model / Serial / Lot Implanted Type Area Manufactur er 04/29/2018 00434-87 / / [id number] Closure Sys Perclose Progl 6fr Cardiovasc N/A: Ganesh AGUILLON 75990-16 - [id number] anjana LAB:VASC Implanted: Qty: 1 on 10/16/2016 by Segundo Welch MD 10/27/2016 [id number] / / [id number] Tyrx Absorbable Antibacterial Cardiovasc Left: Chest TYRX Envelope ular [employer] Implanted: Qty: 1 on 10/19/2016 by Segundo Camarillo MD 10/08/2018 [id number] / [id number] / Ingevity Mri Pacemaker N/A: Heart B[place]ON Implanted: Qty: 1 on 10/19/2016 by Segundo Marion MD 10/05/2018 [id number] / [id number] / Ingevity Mri Pacemaker N/A: Heart BOSTON Implanted: Qty: 1 on 10/19/2016 by Segundo Marion MD 09/15/2018 L311 / [id number] / Accolade Mri Dr Pacemakers N/A: Chest BOSTON Implanted: Qty: 1 on 10/19/2016 by Segundo Mcmanus MD Results Not on fileafter 02/02/2018 Insurance Payer Benefit Subscriber ID Type Phone Address Plan / Group [facility] xxxxxxxxxx [facility] Contracted ALL Advance Directives For more information, please contact: [facility] [address] [place] [address] Date Inactivated Comments Code Status Date Activated 10/22/2016 7:44 PM Full Code 10/16/2016 2:40 PM This code status was determined by: Patient 10/16/2016 2:40 PM Full Code 10/14/2016 3:28 AM This code status was determined by: Patient
[2019-02-03] MEDS ORDERED: LIDOCAINE 1% W/EPINEPHRINE 20 ML VIAL INJ ONE (03:00)
[2019-02-03] MEDS ORDERED: TETANUS/DIPHTHERIA TOX ADULT 0.5 ML SYR IM ONE (03:00)
--- NOTE | 2019-02-03 03:28 | Diagnostic Imaging Report ---
LOWER LEG RIGHT - 3 views HISTORY: Pain COMPARISON: None available. FINDINGS: See impression. IMPRESSION: No acute fracture or dislocation of the right tibial/fibula. Tricompartmental degenerative changes of the right knee there is Extensive subcutaneous edema. Scattered soft tissue calcifications, likely phleboliths. Signed by: Dr. Emir Diaz MD on 02/03/2019 3:25 AM
[2019-02-03] MEDS ORDERED: NEOSTIGMINE 1 MG/ML 10ML VIAL ONE ×2 (04:05→04:21)
[2019-02-03] MEDS ORDERED: NEOMYCIN/POLYMYXIN/BACITRACIN 15 GM TUBE TOP STA (04:29)
[2019-02-03] MEDS ORDERED: DOXYCYCLINE HYCLATE TABLET 100 MG TAB PO ONE (04:30)
[2019-02-03] MEDS ORDERED: DOXYCYCLINE HYCLATE TABLET 100 MG TAB ONE (04:33)
== END 2019-02-03 05:50 | disposition home or self-care (01) ==
LOC: ER 02:25
DX: S81.811A Laceration without foreign body, right lower leg, initial encounter (principal); W45.8XXA Other foreign body or object entering through skin, initial encounter; Y92.008 Other place in unspecified non-institutional (private) residence as the place of occurrence of the external cause; E11.40 Type 2 diabetes mellitus with diabetic neuropathy, unspecified; I10 Essential (primary) hypertension; I25.10 Atherosclerotic heart disease of native coronary artery without angina pectoris; E78.5 Hyperlipidemia, unspecified; Z79.01 Long term (current) use of anticoagulants; Z95.810 Presence of automatic (implantable) cardiac defibrillator
CPT/HCPCS: 12004; 73590; 90471; 90714; 99283; J2710

== ENCOUNTER 2019-02-14 19:28 | Emergency (ER) | payer MEDICARE ==
[~2019-02-14] VITALS: Ht 193 cm; Wt 127.0 kg
--- OUTSIDE RECORDS SUMMARY | 2019-02-14 19:30 | XMS REPORT | Clinical Summary ---
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 10/22/2016 pectoris (HCC), [...] Lot Implanted Type Area Manufactur er 04/29/2018 [id number] / / [id number] Closure Sys Perclose Progl 6fr Cardiovasc N/A: Ganesh AGUILLON 63348-12 - [id number] anjana LAB:VASC Implanted: Qty: 1 on 10/16/2016 by Segundo Welch MD 10/27/2016 [id number] / / [id number] Tyrx Absorbable Antibacterial Cardiovasc Left: Chest TYRX Envelope ular [employer] Implanted: Qty: 1 on 10/19/2016 by Segundo Camarillo MD 10/08/2018 [id number] / [id number] / Ingevity Mri Pacemaker N/A: Heart BOSTON Implanted: Qty: 1 on 10/19/2016 by Segundo Marion MD 10/05/2018 [id number] / [id number] / Ingevity Mri Pacemaker N/A: Heart B[place]ON Implanted: Qty: 1 on 10/19/2016 by Segundo Marion MD 09/15/2018 L311 / [id number] / Accolade Mri Dr Pacemakers N/A: Chest BOSTON Implanted: Qty: 1 on 10/19/2016 by Segundo Mcmanus MD Results Not on fileafter 02/13/2018 Insurance Payer Benefit Subscriber ID Type Phone Address Plan / Group [facility] xxxxxxxxxx [facility] HEALTHSPRI Contracted ALL Advance Directives For more information, please contact: [facility] [address] [place] [address] Date Inactivated Comments Code Status Date Activated 10/22/2016 7:44 PM Full Code 10/16/2016 2:40 PM This code status was determined by: Patient 10/16/2016 2:40 PM Full Code 10/14/2016 3:28 AM This code status was determined by: Patient
[2019-02-14] MEDS ORDERED: AMARYL4 MG PO (19:41)
[2019-02-14 20:04] LABS: BASOPHILS # (AUTO) 0.1 (0.0-0.1); BASOPHILS % 0.9 % (0.0-1.0); EOSINOPHILS # (AUTO) 0.1 (0.0-0.4); EOSINOPHILS % 0.7 % (0.0-6.0); HEMATOCRIT 38.3 % (38.2-49.6); HEMOGLOBIN 13.2 g/dL (14.0-18.0); LYMPHOCYTES # (AUTO) 2.2 (1.0-3.2); LYMPHOCYTES % 31.5 % (18.0-39.1); MEAN CORPUSCULAR HEMOGLOBIN 30.9 pg (28-32); MEAN CORPUSCULAR HGB CONC 34.5 g/dL (31-35); MEAN CORPUSCULAR VOLUME 89.7 fL (81-99); MONOCYTES # (AUTO) 0.5 (0.2-0.8); MONOCYTES % 6.9 % (4.4-11.3); NEUTROPHILS # (AUTO) 4.1 (2.1-6.9); NEUTROPHILS % 59.6 % (38.7-80.0); PLATELET COUNT 337 x10e3/uL (140-360); RED BLOOD COUNT 4.27 x10e6/uL (4.3-5.7); RED CELL DISTRIBUTION WIDTH 12.9 % (11.7-14.4)
--- NOTE | 2019-02-14 20:23 | Diagnostic Imaging Report ---
EXAMINATION: CHEST SINGLE (PORTABLE) COMPARISON: Chest x-ray 01/01/2018 INDICATION: Shortness of breath, hypoxia ^ERMD ORDER ^[id number] ^1945 ^Y DISCUSSION: Frontal view of the chest obtained at 1955 hours. HEART AND MEDIASTINUM: Stable cardiomegaly and tortuous aorta LINES: Dual-lead pacemaker wires terminate in the right atrium and right ventricle LUNGS: Stable elevation of the left diaphragm. The lungs appear hyperinflated. No confluent infiltrates. Trace discoid atelectasis in the left lung base adjacent to the diaphragm PLEURA: No pleural effusion or pneumothorax. BONES AND SOFT TISSUES: No focal osseous lesion. The soft tissues are normal. IMPRESSION: Pulmonary hyperinflation suggestive of small airways disease. Trace left basilar atelectasis. Stable elevation of the left diaphragm. Stable cardiomegaly without vascular congestion. Signed by: Dr. Johan Navarrete MD on 02/14/2019 8:19 PM
[2019-02-14 20:24] LABS: ALANINE AMINOTRANSFERASE 13 IU/L (0-55); ALBUMIN 3.6 g/dL (3.5-5.0); ALBUMIN/GLOBULIN RATIO 0.9 (0.8-2.0); ALKALINE PHOSPHATASE 77 IU/L (40-150); ANION GAP 14.9 mmol/L (8-16); BLOOD UREA NITROGEN 16 mg/dL (7-26); BUN/CREATININE RATIO 15 (6-25); CALCIUM 9.3 mg/dL (8.4-10.2); CARBON DIOXIDE 24 mmol/L (22-29); CHLORIDE 102 mmol/L (98-107); CREATINE KINASE 65 IU/L (30-200); CREATININE, SERUM 1.05 mg/dL (0.72-1.25); EST GLOMERULAR FILTRATION RATE > 60 ML/MIN (60-); GLUCOSE 240 mg/dL (74-118); POTASSIUM 3.9 mmol/L (3.5-5.1); SODIUM 137 mmol/L (136-145)
[2019-02-14] MEDS ORDERED: PREDNISONE20 MG PO (20:47)
[2019-02-14] MEDS ORDERED: FLOVENT HFA12 GM INH (21:05)
[2019-02-14] MEDS ORDERED: ALBUTEROL/IPRATROPIUM 3 ML NEB NEB ONE (21:15)
[2019-02-14 22:08] VITALS: BP 132/75
== END 2019-02-14 21:50 | disposition home or self-care (01) ==
LOC: ER 19:28
DX: R06.00 Dyspnea, unspecified (principal); J44.1 Chronic obstructive pulmonary disease with (acute) exacerbation; I10 Essential (primary) hypertension; E11.9 Type 2 diabetes mellitus without complications; I25.10 Atherosclerotic heart disease of native coronary artery without angina pectoris; G62.9 Polyneuropathy, unspecified; Z95.810 Presence of automatic (implantable) cardiac defibrillator
CPT/HCPCS: 36415; 71045; 80053; 82550; 82553; 83880; 84484; 85025; 85730; 93005; 94640; 99284

== ENCOUNTER 2019-05-24 05:38 | Inpatient (IN) | payer MEDICARE ==
[2019-05-24] VITALS (7 sets, daily range): BP systolic 94–110; BP diastolic 57–78
[~2019-05-24] VITALS: Ht 193 cm; Wt 122.5 kg
[~2019-05-24 05:38] MED LIST changes: +AMARYL4 MG PO; -ASPIR 8181 MG; +ASPIR 8181 MG PO; +FLOVENT HFA12 GM INH; +PREDNISONE20 MG PO
--- OUTSIDE RECORDS SUMMARY | 2019-05-24 05:41 | XMS REPORT | Clinical Summary ---
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 10/22/2016 pectoris (HCC), [...] Lot Implanted Type Area Manufactur er 04/29/2018 86826-68 / / [id number] Closure Sys Perclose Progl 6fr Cardiovasc N/A: Ganesh AGUILLON 89071-41 - [id number] anjana LAB:VASC Implanted: Qty: 1 on 10/16/2016 by Segundo Welch MD 10/27/2016 [id number] / / [id number] Tyrx Absorbable Antibacterial Cardiovasc Left: Chest TYRX Envelope ular [employer] Implanted: Qty: 1 on 10/19/2016 by Segundo Camarillo MD 10/08/2018 [id number] / [id number] / Ingevity Mri Pacemaker N/A: Heart B[place]ON Implanted: Qty: 1 on 10/19/2016 by Segundo Marion MD 10/05/2018 [id number] / [id number] / Ingevity Mri Pacemaker N/A: Heart BOSTON Implanted: Qty: 1 on 10/19/2016 by Segundo Marion MD 09/15/2018 L311 / [id number] / Accolade Mri Dr Pacemakers N/A: Chest BOSTON Implanted: Qty: 1 on 10/19/2016 by Segundo Mcmanus MD Results Not on fileafter 05/23/2018 Insurance Payer Benefit Subscriber ID Type Phone Address Plan / Group [facility] xxxxxxxxxx [facility]ALTH[facility] Contracted ALL Advance Directives For more information, please contact: [facility] [address] [place] [address] Date Inactivated Comments Code Status Date Activated 10/22/2016 7:44 PM Full Code 10/16/2016 2:40 PM This code status was determined by: Patient 10/16/2016 2:40 PM Full Code 10/14/2016 3:28 AM This code status was determined by: Patient
[2019-05-24] MEDS ORDERED: SODIUM CHLORIDE 0.9% 1000ML 1,000 ML IV ONE ×4 (06:15→09:45)
[2019-05-24 06:49] LABS: BASOPHILS # (AUTO) 0.1 (0.0-0.1); BASOPHILS % 0.4 % (0.0-1.0); EOSINOPHILS % 0.2 % (0.0-6.0); HEMATOCRIT 38.9 % (38.2-49.6); HEMOGLOBIN 13.6 g/dL (14.0-18.0); LYMPHOCYTES # (AUTO) 2.4 (1.0-3.2); LYMPHOCYTES % 19.7 % (18.0-39.1); MEAN CORPUSCULAR HEMOGLOBIN 30.7 pg (28-32); MEAN CORPUSCULAR VOLUME 87.8 fL (81-99); MONOCYTES # (AUTO) 0.6 (0.2-0.8); MONOCYTES % 5.2 % (4.4-11.3); NEUTROPHILS # (AUTO) 9.1 (2.1-6.9); PLATELET COUNT 379 x10e3/uL (140-360); RED BLOOD COUNT 4.43 x10e6/uL (4.3-5.7); RED CELL DISTRIBUTION WIDTH 12.8 % (11.7-14.4)
[2019-05-24 06:59] LABS: INR 0.94; PROTHROMBIN TIME 13.1 seconds (11.9-14.5)
[2019-05-24 07:10] LABS: ALBUMIN 3.5 g/dL (3.5-5.0); ALBUMIN/GLOBULIN RATIO 0.9 (0.8-2.0); ANION GAP 21.2 mmol/L (8-16); CALCIUM 9.6 mg/dL (8.4-10.2); CREATININE, SERUM 1.72 mg/dL (0.72-1.25); POTASSIUM 4.2 mmol/L (3.5-5.1)
--- NOTE | 2019-05-24 07:12 | NUR ---
DR. DANIEL AND Moni HECTOR, DAMASO NOTIFIED AND AWARE OF CRITICAL LAB VALUE; GLUCOSE 529.
[2019-05-24] MEDS ORDERED: INSULIN REGULAR, HUMAN 100 UNIT/1 ML 3ML VIAL SQ ONE (07:15)
[2019-05-24 07:16] LABS: CREATINE KINASE MB 6.3 ng/mL (0-5.0)
--- NOTE | 2019-05-24 07:24 | Diagnostic Imaging Report ---
EXAMINATION: CHEST SINGLE (PORTABLE) INDICATION: ^fever, cough, sob ^[id number] ^0620 ^Y COMPARISON: 02/14/2019 FINDINGS: AP view TUBES and LINES: Stable dual-lead left chest wall cardiac device. LUNGS: Lungs are well inflated. Mild central vascular congestion. No definite focal consolidation. Unchanged elevation of the left hemidiaphragm. PLEURA: No pleural effusion or pneumothorax. HEART AND MEDIASTINUM: The cardiomediastinal silhouette is enlarged. BONES AND SOFT TISSUES: No acute osseous lesion. Soft tissues are unremarkable. UPPER ABDOMEN: No free air under the diaphragm. IMPRESSION: Mild central vascular congestion. No definite focal consolidation. No significant interval change from prior exam. Signed by: Dr. Emir Diaz MD on 05/24/2019 7:20 AM
[2019-05-24 07:28] LABS: B-TYPE NATRIURETIC PEPTIDE2 102.5 pg/mL (0-100)
[2019-05-24] MEDS ORDERED: FUROSEMIDE40 MG PO (09:21)
[2019-05-24 09:41] LABS: BACTERIA,URINE RARE /HPF; EPITHELIAL CELLS,URINE RARE /LPF; WBC,URINE (MAN) 0-5 /HPF (0-5)
[2019-05-24 09:44] LABS: BILIRUBIN,URINE NEGATIVE (NEGATIVE); CLARITY,URINE CLEAR (CLEAR); COLOR,URINE YELLOW (YELLOW); KETONES,URINE 1+ (NEGATIVE); LEUKOCYTE ESTERASE ,URINE NEGATIVE (NEGATIVE); NITRITE,URINE NEGATIVE (NEGATIVE); PROTEIN,URINE DIPSTICK TRACE (NEGATIVE); URINE UROBILINOGEN 0.2 mg/dL (0.2 - 1)
[2019-05-24] MEDS ORDERED: VANCOMYCIN 1GM/NS 250 ML 250 ML IV ONE (09:45)
[2019-05-24] MEDS ORDERED: SODIUM CHLORIDE 0.9% 1000ML 1,000 ML ONE (09:49)
[2019-05-24] MEDS ORDERED: DEXTROSE 50% SYRINGE 50 ML IV PRN (10:15)
[2019-05-24] MEDS ORDERED: ONDANSETRON HCL INJ 2MG/ML 2ML 2 MG/ML VIAL IV PRN (10:15)
[2019-05-24] MEDS: CEFEPIME 2 GM/NS 0.9% 100 ML 100 ML IV SCH ×2 (10:18→22:12)
[2019-05-24] MEDS ORDERED: SODIUM CHLORIDE 0.9% 1000ML 1,000 ML IV SCH (10:30)
--- NOTE | 2019-05-24 10:30 | NUR ---
Received patient from the ER patient arrived on stretcher, alert and oriented x3, able to ambulate using his own cane, patient verbalizing needs, oriented to room and use of call light. IV vancomycin infusing, wound care consult ordered, patient has wounds to left upper arm and to left sheen, patient has bilateral lower feet toe amputations. Left great toe and 2nd index toe, right foot great toe amputated. Skin is dry and scaly to bilateral lower extremities.
--- OUTSIDE RECORDS SUMMARY | 2019-05-24 10:33 | XMS REPORT | Clinical Summary ---
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 10/22/2016 pectoris (HCC), [...] Lot Implanted Type Area Manufactur er 04/29/2018 60478-10 / / [id number] Closure Sys Perclose Progl 6fr Cardiovasc N/A: Ganesh AGUILLON 22173-41 - [id number] anjana LAB:VASC Implanted: Qty: 1 on 10/16/2016 by Segundo Welch MD 10/27/2016 [id number] / / [id number] Tyrx Absorbable Antibacterial Cardiovasc Left: Chest TYRX Envelope ular [employer] Implanted: Qty: 1 on 10/19/2016 by Segundo Camarillo MD 10/08/2018 [id number] / [id number] / Ingevity Mri Pacemaker N/A: Heart BOSTON Implanted: Qty: 1 on 10/19/2016 by Segundo Marion MD 10/05/2018 [id number] / [id number] / Ingevity Mri Pacemaker N/A: Heart BOSTON Implanted: Qty: 1 on 10/19/2016 by Segundo Marion MD 09/15/2018 L311 / [id number] / Accolade Mri Dr Pacemakers N/A: Chest BOSTON Implanted: Qty: 1 on 10/19/2016 by Segundo Mcmanus MD Results Not on fileafter 05/23/2018 Insurance Payer Benefit Subscriber ID Type Phone Address Plan / Group [facility] xxxxxxxxxx [facility] HEALTHSPRI Contracted ALL Advance Directives For more information, please contact: [facility] [address] [place] [address] Date Inactivated Comments Code Status Date Activated 10/22/2016 7:44 PM Full Code 10/16/2016 2:40 PM This code status was determined by: Patient 10/16/2016 2:40 PM Full Code 10/14/2016 3:28 AM This code status was determined by: Patient
[2019-05-24 10:36] LABS: ABG PCO2 32 mmHg (41-51); ABG PH 7.37 (7.31-7.41); ABG PO2 69 mmHg (80-105)
[2019-05-24 10:37] LABS: ABG HCO3 18 mmol/L (23-28)
[2019-05-24] MEDS: FAMOTIDINE 20 MG/2 ML VIAL IV SCH ×2 (10:39→22:12)
[2019-05-24] MEDS: INSULIN LISPRO 100 UNIT/1 ML 3ML VIAL SQ SCH ×3 (11:50→21:00)
[2019-05-24] MEDS ORDERED: ALBUTEROL/IPRATROPIUM 3 ML NEB NEB PRN (14:15)
[2019-05-24 15:39] LABS: CREATINE KINASE MB 6.4 ng/mL (0-5.0)
--- NOTE | 2019-05-24 19:10 | NUR ---
Walking rounds done and report received. Patient denies any pain/discomfort or SOB at this time. He is awake, alert, and able to make needs known. He was instructed to call for assistance as needed and verbalized understanding. Call damon within reach.
[2019-05-24] MEDS ORDERED: SODIUM CHLORIDE 0.9% 250ML 250 ML ONE (21:21)
[2019-05-25] VITALS (9 sets, daily range): BP systolic 90–139; BP diastolic 59–90
[2019-05-25 05:13] LABS: BASOPHILS # (AUTO) 0.1 (0.0-0.1); BASOPHILS % 0.9 % (0.0-1.0); EOSINOPHILS # (AUTO) 0.1 (0.0-0.4); EOSINOPHILS % 1.5 % (0.0-6.0); HEMATOCRIT 32.1 % (38.2-49.6); HEMOGLOBIN 10.8 g/dL (14.0-18.0); LYMPHOCYTES # (AUTO) 2.1 (1.0-3.2); LYMPHOCYTES % 30.7 % (18.0-39.1); MEAN CORPUSCULAR HEMOGLOBIN 30.4 pg (28-32); MEAN CORPUSCULAR HGB CONC 33.6 g/dL (31-35); MEAN CORPUSCULAR VOLUME 90.4 fL (81-99); MONOCYTES # (AUTO) 0.5 (0.2-0.8); MONOCYTES % 7.9 % (4.4-11.3); NEUTROPHILS # (AUTO) 3.9 (2.1-6.9); NEUTROPHILS % 58.6 % (38.7-80.0); PLATELET COUNT 281 x10e3/uL (140-360); RED BLOOD COUNT 3.55 x10e6/uL (4.3-5.7)
[2019-05-25 05:31] LABS: ALANINE AMINOTRANSFERASE 15 IU/L (0-55); ALBUMIN 2.8 g/dL (3.5-5.0); ALBUMIN/GLOBULIN RATIO 0.9 (0.8-2.0); ALKALINE PHOSPHATASE 48 IU/L (40-150); ANION GAP 10.8 mmol/L (8-16); BLOOD UREA NITROGEN 16 mg/dL (7-26); BUN/CREATININE RATIO 17 (6-25); CALCIUM 8.6 mg/dL (8.4-10.2); CARBON DIOXIDE 25 mmol/L (22-29); CHLORIDE 102 mmol/L (98-107); CHOL/HDL RATIO 4.6 (3.9-4.7); CHOLESTEROL 137 MD/DL (0-199); CREATININE, SERUM 0.95 mg/dL (0.72-1.25); EST GLOMERULAR FILTRATION RATE > 60 ML/MIN (60-); GLUCOSE 182 mg/dL (74-118); HDL CHOLESTEROL 30 MG/DL (40-60); LDL CHOLESTEROL 91 MG/DL (60-130); POTASSIUM 3.8 mmol/L (3.5-5.1); SODIUM 134 mmol/L (136-145); TRIGLYCERIDES 81 MG/DL (0-149)
--- NOTE | 2019-05-25 07:15 | NUR ---
Walking rounds and report given. call damon within reach.
[2019-05-25] MEDS: METFORMIN HCL 500 MG TAB PO SCH ×2 (07:17→16:41)
[2019-05-25] MEDS: INSULIN LISPRO 100 UNIT/1 ML 3ML VIAL SQ SCH ×4 (07:19→21:02)
[2019-05-25 08:00] LABS: CREATINE KINASE MB 2.8 ng/mL (0-5.0)
[2019-05-25] MEDS: PREDNISONE 20 MG TAB PO SCH (10:00)
[2019-05-25] MEDS: LISINOPRIL 2.5 MG TAB PO SCH (10:00)
[2019-05-25] MEDS: ASPIRIN 81 MG CHEW TAB PO SCH (10:00)
[2019-05-25] MEDS: FUROSEMIDE 40 MG TAB PO SCH (10:00)
[2019-05-25] MEDS: CLOPIDOGREL BISULFATE 75 MG TAB PO SCH (10:00)
[2019-05-25] MEDS: FAMOTIDINE 20 MG/2 ML VIAL IV SCH ×2 (10:01→21:02)
[2019-05-25] MEDS: CEFEPIME 2 GM/NS 0.9% 100 ML 100 ML IV SCH ×2 (10:01→21:02)
[2019-05-25] MEDS ORDERED: ONDANSETRON HCL 4 MG ORAL DISINTEGRATING TAB PO PRN (13:15)
--- NOTE | 2019-05-25 13:56 | NUR ---
WOUND CARE CONSULTATION: THIS IS A 64 YEAR OLD MALE PATIENT ADMITTED TO [facility] FOR RENAL INSUFFICENCY, SEPSIS, AND TRANSIENT HYPOTENSION. HEAD TO TOE SKIN ASSESSMENT PERFORMED. PATIENT HAS A LEFT PROXIMAL FOREARM WOUND MEASURING 1.1X1.2X0.2CM, 100% PINK GRANULATION TO WOUND BED. PATIENT HAS A LEFT FOREARM DISTAL WOUND MEASURING 2X1.3X0.1CM, 100% PINK GRANULATION TO WOUND BED. PATIENT STATED "I BUMPED MY ARM INTO A DOOR ABOUT 2 WEEKS AGO AND THATS WHERE MY LEFT ARM WOUNDS ARE FROM". PATIENT HAS A VENOUS ULCER TO THE LEFT [place] MEASURING 1.3X1.8X0.3CM, 90% PINK GRANULATION AND 10% SLOUGH TO WOUND BED. PATIENT STATED "THAT WOUND CLOSES AND REOPENS FOR THE PAST FEW YEARS DEPENDING ON THE SWELLING OF MY LEGS. NO EDEMA NOTED TO BLE. BILATERAL LOWER LEGS AND FEET ARE VERY DRY UPON ASSESSMENT. WEAK PALPABLE PULSES NOTED TO RIGHT AND LEFT DP AND PT. LABS: WBC6.68 ALB2.8 [id number] URINE CULTURE = PENDING BLOOD CULTURE = NEGATIVE MEDICATIONS: CEFEPIME RECOMMENDATION: -APPLY ALTERNATING PRESSURE RELIEF MATTRESS. -APPLY BILATERAL HEEL PROTECTORS WITH PILLOW SUSPENSION. -ENCOURAGE PATIENT TO TURN EVERY 2 HOURS AND PRN. -NURSING TO CLEAN BLE WITH SOAP AND WATER, PAT DRY, APPLY EUCERIN CREAM TO ALL DRY AREAS DAILY AND PRN. LEAVE OPEN TO AIR. -NURSING TO CLEAN LEFT [place] ULCER WITH NORMAL SALINE, PAT DRY, APPLY BACTROBAN, 4X4 GAUZE, KERLIX AND TAPE; CHANGE DAILY. -NURSING TO CLEAN PROXIMAL AND DISTAL LEFT FOREARM WOUNDS WITH NORMAL SALINE, PAT DRY, APPLY FIBRACOL TO FIT SIZE OF WOUND, COVER WITH NS MOISTENED GAUZE, KERLIX, AND SECURE WITH TAPE; CHANGE DAILY AND PRN. THANK YOU FOR THIS WOUND CARE CONSULT. Addendum: 05/25/19 at 1411 by Lela Guardado RN Amended: Links added.
[2019-05-26] VITALS (11 sets, daily range): BP systolic 95–138; BP diastolic 58–95
[2019-05-26] MEDS ORDERED: LOPERAMIDE HCL 2 MG CAP PO PRN (00:30)
[2019-05-26] MEDS ORDERED: METHYLPREDNISOLONE SOD SUCC 40 MG/ML VIAL 1ML IV ONE (07:00)
--- NOTE | 2019-05-26 07:13 | NUR ---
Report given to oncoming nurse, walking round done.
[2019-05-26] MEDS: ASPIRIN 81 MG CHEW TAB PO SCH (09:33)
[2019-05-26] MEDS: PREDNISONE 20 MG TAB PO SCH (09:33)
[2019-05-26] MEDS: CLOPIDOGREL BISULFATE 75 MG TAB PO SCH (09:33)
[2019-05-26] MEDS: FUROSEMIDE 40 MG TAB PO SCH (09:33)
[2019-05-26] MEDS: METFORMIN HCL 500 MG TAB PO SCH ×2 (09:39→16:25)
[2019-05-26] MEDS: INSULIN LISPRO 100 UNIT/1 ML 3ML VIAL SQ SCH ×4 (09:55→21:00)
[2019-05-26] MEDS: FAMOTIDINE 20 MG/2 ML VIAL IV SCH (10:24)
[2019-05-26] MEDS: LISINOPRIL 2.5 MG TAB PO SCH (10:41)
[2019-05-26] MEDS: CEFEPIME 2 GM/NS 0.9% 100 ML 100 ML IV SCH ×2 (10:41→21:45)
[2019-05-26] MEDS: MUPIROCIN 2% OINT 22 GM TUBE TOP SCH (11:21)
[2019-05-26] MEDS: MINERAL OIL/PETROLAT/GLYCERI 8OZ LOTN TOP SCH (11:22)
[2019-05-26] MEDS ORDERED: HEPARIN SOD (PORCINE) 1000 UNIT/ML 30ML ONE (14:18)
[2019-05-26] MEDS ORDERED: VERAPAMIL HCL 2.5 MG/ML 2 ML VIAL ONE (14:18)
--- NOTE | 2019-05-26 14:55 | NUR ---
Handoff report to nurse JAMIA Loyd, patient transferred wheel chair, no s/s of distress.
--- NOTE | 2019-05-26 15:30 | NUR ---
The pt. was received from [facility] via w/c in stable condition. There are dressings to the arms and legs which are clean dry and recently changed. He offers no comp at this time.
--- NOTE | 2019-05-26 19:47 | NUR ---
Recieved change of shift report from AM nurse. Walking rounds completed.
[2019-05-26] MEDS: FAMOTIDINE 20 MG TAB PO SCH (21:00)
[2019-05-27] VITALS (7 sets, daily range): BP systolic 92–128; BP diastolic 55–74
[2019-05-27] MEDS: FAMOTIDINE 20 MG TAB PO SCH ×2 (09:33→20:29)
[2019-05-27] MEDS: FUROSEMIDE 40 MG TAB PO SCH (09:33)
[2019-05-27] MEDS: METFORMIN HCL 500 MG TAB PO SCH ×2 (09:33→16:38)
[2019-05-27] MEDS: ASPIRIN 81 MG CHEW TAB PO SCH (09:33)
[2019-05-27] MEDS: PREDNISONE 20 MG TAB PO SCH (09:34)
[2019-05-27] MEDS: CLOPIDOGREL BISULFATE 75 MG TAB PO SCH (09:34)
[2019-05-27] MEDS: LISINOPRIL 2.5 MG TAB PO SCH (09:34)
[2019-05-27] MEDS: INSULIN LISPRO 100 UNIT/1 ML 3ML VIAL SQ SCH ×4 (09:37→20:30)
[2019-05-27] MEDS: CEFEPIME 2 GM/NS 0.9% 100 ML 100 ML IV SCH ×2 (10:14→21:45)
[2019-05-27] MEDS: MUPIROCIN 2% OINT 22 GM TUBE TOP SCH (11:52)
[2019-05-27] MEDS: MINERAL OIL/PETROLAT/GLYCERI 8OZ LOTN TOP SCH (11:52)
[2019-05-28] VITALS: BP 106/79
[2019-05-28 04:00] VITALS: BP 121/77
--- NOTE | 2019-05-28 05:50 | NUR ---
Patient resting quitky at this time.
--- NOTE | 2019-05-28 06:59 | NUR ---
received report from maintenance mechanic 2nd shift RN, pt awake, alert, oriented, sitting up comfortably in bed, no signs of distress noted,will continue to monitor.
[2019-05-28 08:04] VITALS: BP 120/75
[2019-05-28] MEDS: METFORMIN HCL 500 MG TAB PO SCH (08:16)
[2019-05-28] MEDS: ASPIRIN 81 MG CHEW TAB PO SCH (08:16)
[2019-05-28] MEDS: CLOPIDOGREL BISULFATE 75 MG TAB PO SCH (08:17)
[2019-05-28] MEDS: FAMOTIDINE 20 MG TAB PO SCH (08:17)
[2019-05-28] MEDS: FUROSEMIDE 40 MG TAB PO SCH (08:17)
[2019-05-28] MEDS: PREDNISONE 20 MG TAB PO SCH (08:18)
[2019-05-28] MEDS: LISINOPRIL 2.5 MG TAB PO SCH (08:20)
[2019-05-28] MEDS: INSULIN LISPRO 100 UNIT/1 ML 3ML VIAL SQ SCH (08:22)
[2019-05-28 08:29] VITALS: BP 120/75
[2019-05-28] MEDS ORDERED: KEFLEX500 MG PO (10:47)
--- NOTE | 2019-06-12 04:37 | Discharge Summary ---
DISCHARGE DIAGNOSIS: Cellulitis of the bilateral lower extremities. HISTORY OF PRESENT ILLNESS AND HOSPITAL COURSE: The patient is a gentleman, who has a history of severe chronic lymphedema, peripheral arterial disease, diabetes, who presented with some redness and swelling of his lower extremities above his baseline. He was noticed to have some cellulitis components of both legs, left worse than right. He was brought in, placed on IV antibiotics, and continuation of his home medications. He had significant improvement of his cellulitis. At the time of discharge, they almost completely resolved. He was switched over to p.o. antibiotics and follow up with me in approximately 1 week. Please see hospital chart for full details. MD AUDREY Mcnamara/REVA /[id number]
== END 2019-05-28 11:24 | disposition home or self-care (01) | DRG 603 ==
LOC: ER 05:38 → ERHOLD 10:31 → IMCU 12:03 → MED/SURG3 05-26 15:20
PROVIDERS: ADMIT Internal Medicine; ATTEND Internal Medicine
DX: L03.116 Cellulitis of left lower limb (principal); N17.9 Acute kidney failure, unspecified; L03.115 Cellulitis of right lower limb; E11.22 Type 2 diabetes mellitus with diabetic chronic kidney disease; I12.9 Hypertensive chronic kidney disease with stage 1 through stage 4 chronic kidney disease, or unspecified chronic kidney disease; N18.3 Chronic kidney disease, stage 3 (moderate); E78.00 Pure hypercholesterolemia, unspecified; I25.10 Atherosclerotic heart disease of native coronary artery without angina pectoris; E11.51 Type 2 diabetes mellitus with diabetic peripheral angiopathy without gangrene; Z79.4 Long term (current) use of insulin; D64.9 Anemia, unspecified; E78.5 Hyperlipidemia, unspecified; I48.91 Unspecified atrial fibrillation; Z79.01 Long term (current) use of anticoagulants; Z95.810 Presence of automatic (implantable) cardiac defibrillator; I87.2 Venous insufficiency (chronic) (peripheral); I89.0 Lymphedema, not elsewhere classified
CPT/HCPCS: 36415; 36600; 71045; 80053; 80061; 81001; 82550; 82553; 82805; 82948; 83605; 83880; 84484; 85025; 85610; 85730; 87040; 87086; 87400; 93005; 96372; 99284; J1644; J1817; J2920; J3370; J7030; J7050; J7512

== ENCOUNTER 2019-05-29 16:02 | Emergency (ER) | payer MEDICARE ==
[~2019-05-29] VITALS: Ht 193 cm; Wt 122.5 kg
[~2019-05-29 16:02] MED LIST changes: +FUROSEMIDE40 MG PO; +KEFLEX500 MG PO
[2019-05-29] MEDS ORDERED: ASPIRIN 81 MG CHEW TAB PO ONE (17:45)
[2019-05-29 17:53] LABS: BASOPHILS # (AUTO) 0.1 (0.0-0.1); BASOPHILS % 0.7 % (0.0-1.0); EOSINOPHILS # (AUTO) 0.1 (0.0-0.4); EOSINOPHILS % 0.7 % (0.0-6.0); HEMATOCRIT 38.2 % (38.2-49.6); HEMOGLOBIN 13.5 g/dL (14.0-18.0); LYMPHOCYTES # (AUTO) 1.8 (1.0-3.2); LYMPHOCYTES % 24.6 % (18.0-39.1); MEAN CORPUSCULAR HGB CONC 35.3 g/dL (31-35); MEAN CORPUSCULAR VOLUME 87.6 fL (81-99); MONOCYTES # (AUTO) 0.6 (0.2-0.8); MONOCYTES % 8.8 % (4.4-11.3); NEUTROPHILS # (AUTO) 4.7 (2.1-6.9); NEUTROPHILS % 64.4 % (38.7-80.0); PLATELET COUNT 383 x10e3/uL (140-360); RED BLOOD COUNT 4.36 x10e6/uL (4.3-5.7)
[2019-05-29 18:06] LABS: ALBUMIN 3.3 g/dL (3.5-5.0); ALBUMIN/GLOBULIN RATIO 0.9 (0.8-2.0); ANION GAP 15.1 mmol/L (8-16); CALCIUM 9.6 mg/dL (8.4-10.2); CREATININE, SERUM 1.3 mg/dL (0.72-1.25); INR 0.93; POTASSIUM 4.1 mmol/L (3.5-5.1)
[2019-05-29 18:13] LABS: CREATINE KINASE MB 2.2 ng/mL (0-5.0)
[2019-05-29] MEDS ORDERED: INSULIN REGULAR, HUMAN 100 UNIT/1 ML 3ML VIAL IV ONE (18:45)
--- NOTE | 2019-05-29 19:07 | Diagnostic Imaging Report ---
EXAMINATION: CHEST SINGLE (NOT PORTABLE) INDICATION: ^SOB ^[id number] ^1746 ^Y COMPARISON: 05/24/2019 FINDINGS: TUBES and LINES: None. Stable dual-lead left chest wall cardiac device. LUNGS: Left basilar subsegmental atelectasis. There is minimal prominence of the central pulmonary vasculature, consistent with pulmonary venous congestion. There is increased density in the right paratracheal region. PLEURA: No pleural effusion or pneumothorax. HEART AND MEDIASTINUM: The correct silhouette is not well-visualized, however, appears mildly enlarged. BONES AND SOFT TISSUES: No acute osseous lesion. Soft tissues are unremarkable. UPPER ABDOMEN: No free air under the diaphragm. IMPRESSION: Increased density in the right paratracheal region, new since the prior examination; it could represent developing pneumonia in the proper clinical setting. Further evaluation with PA and lateral views. Signed by: Dr. Eliu Castro M.D. on 05/29/2019 7:04 PM
--- NOTE | 2019-05-29 19:09 | NUR ---
BLOOD SUGAR--402; 10 UNITS REGULAR INSULIN GIVEN IV
[2019-05-29 19:50] VITALS: BP 118/78
--- NOTE | 2019-05-29 20:09 | NUR ---
TALITA OBANDO CALLED FOR THIS PT.
== END 2019-05-29 19:51 | disposition home or self-care (01) ==
LOC: ER 16:02
DX: R06.09 Other forms of dyspnea (principal); E11.65 Type 2 diabetes mellitus with hyperglycemia; I10 Essential (primary) hypertension; J45.909 Unspecified asthma, uncomplicated
CPT/HCPCS: 36415; 71045; 80053; 82550; 82553; 82948; 83880; 84484; 85025; 85610; 85730; 93005; 99284; J1817

== ENCOUNTER 2019-06-02 22:10 | Inpatient (IN) | payer MEDICARE ==
[~2019-06-02] VITALS: Ht 193 cm; Wt 133.8 kg
[2019-06-02 22:24] LABS: BASOPHILS # (AUTO) 0.1 (0.0-0.1); BASOPHILS % 0.6 % (0.0-1.0); EOSINOPHILS # (AUTO) 0.1 (0.0-0.4); EOSINOPHILS % 0.7 % (0.0-6.0); HEMATOCRIT 39.4 % (38.2-49.6); HEMOGLOBIN 13.9 g/dL (14.0-18.0); LYMPHOCYTES # (AUTO) 3.2 (1.0-3.2); MEAN CORPUSCULAR HEMOGLOBIN 30.9 pg (28-32); MEAN CORPUSCULAR HGB CONC 35.3 g/dL (31-35); MEAN CORPUSCULAR VOLUME 87.6 fL (81-99); MONOCYTES # (AUTO) 0.6 (0.2-0.8); MONOCYTES % 6.7 % (4.4-11.3); NEUTROPHILS % 55.6 % (38.7-80.0); PLATELET COUNT 358 x10e3/uL (140-360); RED CELL DISTRIBUTION WIDTH 12.8 % (11.7-14.4)
--- NOTE | 2019-06-02 22:27 | NUR ---
pt stood up and attempted to use urinal, states cannot void at present. awake alert skin w/d resp mildly labored. aware
[2019-06-02 22:50] LABS: ALANINE AMINOTRANSFERASE 19 IU/L (0-55); ALBUMIN 3.5 g/dL (3.5-5.0); ALKALINE PHOSPHATASE 51 IU/L (40-150); ANION GAP 15.8 mmol/L (8-16); BLOOD UREA NITROGEN 16 mg/dL (7-26); BUN/CREATININE RATIO 16 (6-25); CALCIUM 9.5 mg/dL (8.4-10.2); CARBON DIOXIDE 24 mmol/L (22-29); CHLORIDE 95 mmol/L (98-107); CREATINE KINASE 56 IU/L (30-200); CREATININE, SERUM 1.01 mg/dL (0.72-1.25); EST GLOMERULAR FILTRATION RATE > 60 ML/MIN (60-); GLUCOSE 262 mg/dL (74-118); POTASSIUM 3.8 mmol/L (3.5-5.1); SODIUM 131 mmol/L (136-145)
--- NOTE | 2019-06-02 23:11 | Diagnostic Imaging Report ---
Examination: CT head without contrast Clinical Indication: Syncope. Technique: Transaxial noncontrast images from the skull base through the vertex were obtained. Sagittal and coronal reformatted images were done. Dose modulation, iterative reconstruction, and/or weight based adjustment of the mA/kV was utilized to reduce the radiation dose to as low as reasonably achievable. Comparison: None. Findings: Scalp: No abnormalities. Bones: Intact. No fractures. No blastic or lytic lesions. Brain sulci: Mild volume loss for patient's age. Ventricles: No hydrocephalus. Extra-axial space: No abnormalities. Parenchyma: There are subtle patchy areas of low-attenuation within subcortical and periventricular white matter, nonspecific, but could represent microvascular ischemic disease. No masses, hemorrhage, or acute or chronic cortical based vascular insults. Suprasellar region: No abnormalities. Craniocervical junction: The foramen magnum is patent. No Chiari one malformation. Incidental findings: Atherosclerotic calcification of the cavernous and supraclinoid internal carotid and V4 segments of the bilateral vertebral arteries. Impression: 1. No acute intracranial finding. 2. Mild chronic microvascular ischemic change and volume loss. Signed by: Dr. Magy Oseguera M.D. on 06/02/2019 11:08 PM
--- NOTE | 2019-06-02 23:41 | Diagnostic Imaging Report ---
EXAMINATION: CHEST SINGLE (PORTABLE) INDICATION: Near syncope COMPARISON: Chest radiograph 05/24/2019 FINDINGS: AP view TUBES and LINES: Left chest wall cardiac device with leads in the right atrium and right ventricle.. LUNGS: Right lung is well inflated. No consolidations or evidence of pulmonary edema. Chronic elevated left hemidiaphragm with left basilar atelectasis. PLEURA: No pleural effusion or pneumothorax. HEART AND MEDIASTINUM: The cardiomediastinal silhouette is unremarkable. BONES AND SOFT TISSUES: No acute osseous lesion. Soft tissues are unremarkable. UPPER ABDOMEN: No free air under the diaphragm. IMPRESSION: No acute thoracic radiographic abnormality. Chronically elevated left hemidiaphragm with left basilar atelectasis. Signed by: Eduardo Rivera DO on 06/02/2019 11:37 PM
[2019-06-02] MEDS ORDERED: SODIUM CHLORIDE 0.9% 1000ML 1,000 ML ONE (23:46)
[2019-06-03] VITALS (9 sets, daily range): BP systolic 104–146; BP diastolic 62–84
[2019-06-03] MEDS ORDERED: ONDANSETRON HCL INJ 2MG/ML 2ML 2 MG/ML VIAL IV PRN
[2019-06-03] MEDS ORDERED: DEXTROSE 50% SYRINGE 50 ML IV PRN
[2019-06-03] MEDS: SODIUM CHLORIDE 0.9% 1000ML 1,000 ML IV SCH ×4 (00:09→23:01)
[2019-06-03 00:12] LABS: BILIRUBIN,URINE NEGATIVE (NEGATIVE); CLARITY,URINE CLEAR (CLEAR); KETONES,URINE NEGATIVE (NEGATIVE); LEUKOCYTE ESTERASE ,URINE NEGATIVE (NEGATIVE); NITRITE,URINE NEGATIVE (NEGATIVE); PROTEIN,URINE DIPSTICK 1+ (NEGATIVE); URINE UROBILINOGEN 0.2 mg/dL (0.2 - 1)
[2019-06-03 00:15] LABS: COLOR,URINE YELLOW (YELLOW)
[2019-06-03 00:25] LABS: BACTERIA,URINE FEW /HPF; EPITHELIAL CELLS,URINE FEW /LPF; WBC,URINE (MAN) 0-5 /HPF (0-5)
[2019-06-03 06:24] LABS: BASOPHILS % 0.6 % (0.0-1.0); EOSINOPHILS # (AUTO) 0.1 (0.0-0.4); EOSINOPHILS % 1.3 % (0.0-6.0); HEMATOCRIT 35.3 % (38.2-49.6); HEMOGLOBIN 12.3 g/dL (14.0-18.0); LYMPHOCYTES # (AUTO) 2.7 (1.0-3.2); LYMPHOCYTES % 37.9 % (18.0-39.1); MEAN CORPUSCULAR HEMOGLOBIN 31.1 pg (28-32); MEAN CORPUSCULAR HGB CONC 34.8 g/dL (31-35); MEAN CORPUSCULAR VOLUME 89.1 fL (81-99); MONOCYTES # (AUTO) 0.6 (0.2-0.8); NEUTROPHILS # (AUTO) 3.6 (2.1-6.9); NEUTROPHILS % 51.8 % (38.7-80.0); PLATELET COUNT 311 x10e3/uL (140-360); RED BLOOD COUNT 3.96 x10e6/uL (4.3-5.7); RED CELL DISTRIBUTION WIDTH 12.8 % (11.7-14.4)
[2019-06-03 06:41] LABS: ALANINE AMINOTRANSFERASE 16 IU/L (0-55); ALKALINE PHOSPHATASE 44 IU/L (40-150); ANION GAP 10.6 mmol/L (8-16); BLOOD UREA NITROGEN 15 mg/dL (7-26); BUN/CREATININE RATIO 14 (6-25); CALCIUM 8.9 mg/dL (8.4-10.2); CARBON DIOXIDE 29 mmol/L (22-29); CHLORIDE 101 mmol/L (98-107); CREATININE, SERUM 1.04 mg/dL (0.72-1.25); EST GLOMERULAR FILTRATION RATE > 60 ML/MIN (60-); GLUCOSE 220 mg/dL (74-118); POTASSIUM 4.6 mmol/L (3.5-5.1); SODIUM 136 mmol/L (136-145)
--- NOTE | 2019-06-03 07:00 | NUR ---
walking rounds made with night nurse at this time. patient aware of change and in no current distress. call damon within reach and bed in lowest position.
[2019-06-03] MEDS: ASPIRIN 81 MG CHEW TAB PO SCH (08:15)
[2019-06-03] MEDS: CLOPIDOGREL BISULFATE 75 MG TAB PO SCH (08:15)
[2019-06-03] MEDS: INSULIN REGULAR, HUMAN 100 UNIT/1 ML 3ML VIAL SQ SCH ×4 (08:15→21:15)
[2019-06-03] MEDS: FUROSEMIDE 40 MG TAB PO SCH (08:15)
[2019-06-03] MEDS: CEPHALEXIN 500 MG CAP PO SCH ×2 (08:15→16:39)
[2019-06-03] MEDS: LISINOPRIL 10 MG TAB PO SCH (08:15)
[2019-06-03] MEDS: SIMVASTATIN 20 MG TAB PO SCH (08:15)
[2019-06-03] MEDS: FLUTICASONE PROPIONATE 220MCG INH INH SCH ×2 (09:00→19:00)
[2019-06-03 11:04] LABS: THYROID STIMULATING HORMONE 0.724 uIU/mL (0.350-4.940)
[2019-06-03 12:59] LABS: FREE THYROXINE INDEX 2.9869 (1.4-3.8)
--- NOTE | 2019-06-03 13:12 | History and Physical ---
REASON FOR ADMISSION: The patient came in with syncopal episode. HISTORY OF PRESENTING ILLNESS: This is Mr. Aramis Shields, who is a 64-year-old gentleman with history of diabetes, history of hypertension, history of sick sinus syndrome, and history of hyperlipidemia, was in his usual state of health until the patient started to get up to have a drink and had a near syncopal episode, where he fainted and collapsed. No loss of consciousness. No seizure-like activity noted. No incontinence noted and the patient was aware of all the surroundings. The patient came into the emergency room, was admitted for near syncope and for hyponatremia. PAST MEDICAL HISTORY: History of hypertension, history of diabetes, history of atrial fibrillation, history of COPD, history of hyperlipidemia, history of neuropathy, history of peripheral arterial disease, and history of amputation of the toes. MEDICATIONS: He takes aspirin 81 mg, was on cephalexin 500 mg twice a day, clopidogrel 75 mg daily, fluticasone nasal spray, Lasix 40 mg daily, glimepiride 4 mg daily, lisinopril 10 mg daily, lovastatin 20 mg daily, and metformin 500 mg twice a day. PAST SURGICAL HISTORY: History of amputation of the toes as mentioned above. ALLERGIES: THE PATIENT HAS NO DRUG ALLERGIES NOTED. SOCIAL HISTORY: The patient used to smoke, stop smoking about three years ago when the pacemaker was put in. REVIEW OF SYSTEMS: Negative for chest pain. No shortness of breath. No nausea. No vomiting. No diarrhea. No constipation. No rectal bleeding. No hematochezia. No hematemesis. Able to ambulate with assistance. The patient has lymphedema in bilateral lower extremity, which he uses a wrapper for binding. FAMILY HISTORY: Positive for diabetes and hypertension. PHYSICAL EXAMINATION: VITAL SIGNS: Temperature was 97.4, pulse of 107, blood pressure is 146/84, and pulse oximeter of 97% on room air. HEENT: Normocephalic, atraumatic. The patient has poor oral hygiene. NECK: No JVD present. CVS: S1, S2, regular. ABDOMEN: Nontender, nondistended. EXTREMITIES: Positive for bilateral lower extremity swelling with lymphedema and binding. The left toe amputation was noted. NEUROLOGIC: Alert and oriented x3. No seizure activity noted. Response is normal. Mood and affect are normal. Speech is normal. Cranial nerves are normal as tested. No cerebellar findings. No motor or sensory deficits noted in the lower extremity with peripheral neuropathy. LABORATORY VALUES: White count is 8.96, hemoglobin is 13.9, and platelet count is 358. Chemistry shows sodium 131, BUN of 16, creatinine 1.01, and glucose was 262. Total bilirubin of 1.3. Urine was normal. Microbiology not done. IMAGING STUDIES: Chest x-ray shows no acute thoracic abnormalities, chronically elevated left hemidiaphragm. CT of the brain shows no acute intracranial findings, mild chronic microvascular changes and volume loss. EKG shows nonspecific ST-segment elevation abnormalities . ASSESSMENT: 1. Hyponatremia. 2. Near syncope. 3. Diabetes mellitus, uncontrolled. 4. Hypertension. 5. Hyperlipidemia. 6. History of pacemaker. 7. History of atrial fibrillation. 8. Peripheral arterial disease with amputation. PLAN: The patient will be observed on telemetry. Cardiology consult with Dr. Huston's group will be done and Neurological consult for near syncope will also be done. Also, orthostatic blood pressures will be also monitored. Restart the patient on his medications and also do a hemoglobin A1c. Further recommendation per clinical course. We will continue to monitor the patient. The patient is currently and also on fluids. We will go ahead and check sodium in the morning. MD CANDICE Cordova/MODL /[id number]
--- NOTE | 2019-06-03 16:09 | NUR ---
Patient will benefit from PT eval and treat order to address LE weakness and difficulty with gait. Addendum: 06/03/19 at 1611 by Héctor Paris PT Amended: Links added.
--- NOTE | 2019-06-03 16:16 | NUR ---
Nutrition Screen Note RD Recommendation for Physician: 1.Continue with current diet as ordered Plan of Care: RD following, monitoring for tolerance and adequacy Nutrition reason for involvement: Nutrition Risk Trigger Primary Diagnose(s): Hyponatremia PMH: Diabetes Type 2, chronic lymphedema, CAD, PAD, HTN Ht: 64in Wt: 295lbs BMI:35.9 kg/m2 IBW:130lbs +/- 10% RD Assessment: (06/03) Chart reviewed. Labs and meds reviewed. This is a 64 y/o M with reported hx of type 2 diabetes for more than 10 years. Most recent Hga1c 13.4. Patient reports a hx of non compliance with medications and insulin due to current financial constraints. At home, not following a diabetic diet, Denied hx of dietary education in the past. Diet mostly consisting of highly processed foods as able to prepare for himself. Patient reports feeling like tired with fair appetite and intake during admission. PTC showed 100% meal consumption. Weight appears mostly stable with reported UBW of 295lbs. Denied N/V/D/C or difficulties with chewing/swallowing. Pt agreeable to diabetes diet education, will continue to monitor and follow as needed. Current Diet: ADA Diet Malnutrition Evaluation (06/03) The patient does not meet criteria for a specified degree of malnutrition at this time. Will re-evaluate at follow-up as appropriate. Diet Education Needs Assessment: Diet education indicated, pt agreeable to diabetes education. Learner(s): Pt Barriers: none Cultural/Language Modifications: none, pt speaks mauritian Readiness: acceptance, will require reinforcement Method: verbal and written Topics: Carbohydrate rich foods, Diabetes plate method Understanding/Compliance: fair Nutrition Care Level: LOW Signed: Emilia Mccormick, MS, RDN, LD
--- NOTE | 2019-06-03 18:55 | NUR ---
rounded with fireworks inspector nurse, patient aware of change and in no distress. call damon within reach and bed in lowest, locked position.
--- NOTE | 2019-06-03 19:13 | NUR ---
BED SIDE SHIFT REPORT TAKEN FROM MORNING RN.PT IS STABLE.LYEING IN THE BED.
--- NOTE | 2019-06-03 21:00 | NUR ---
No rep.distress.no pain voiced.voided.bed locked and in lowest position.phone and call light within reach.instructed to call for assistance as needed.
--- NOTE | 2019-06-03 23:55 | Consultation ---
DATE OF CONSULTATION: 06/03/2019 Cardiology Consult Note REASON FOR CONSULT: Dizziness, history of pacemaker placement. CHIEF COMPLAINT: Dizziness. HISTORY OF PRESENT ILLNESS: The patient is a 64-year-old man with history of coronary artery disease status post stent in the past, bradycardia, status post pacemaker placement in the past, chronic lower extremity venous insufficiency and wounds, hypertension, hyperlipidemia, who presents with episode of dizziness and presyncope. Denies any chest pain, shortness of breath, or heart failure symptoms. Pacemaker placed about three years ago for having high and low heart rate. PAST MEDICAL HISTORY: 1. Hypertension. 2. Diabetes. 3. History of atrial fibrillation. 4. Status post pacemaker placement. 5. Hyperlipidemia. 6. History of PAD. 7. History of toe amputations. 8. CAD, status post stent. OUTPATIENT MEDICATIONS: As noted in the MAR. ALLERGIES: NO KNOWN DRUG ALLERGIES. SOCIAL HISTORY: Previous smoker. Does not drink or abuse drugs. FAMILY HISTORY: Noncontributory. REVIEW OF SYSTEMS: As per HPI, otherwise negative. PHYSICAL EXAMINATION: VITAL SIGNS: Temperature afebrile, pulse 81, respiratory rate 16, blood pressure 104/62, saturating 95% on room air. GENERAL: Middle-aged man, in no acute distress. CARDIOVASCULAR: Regular rate and rhythm. No murmurs, rubs or gallops. LUNGS: Clear to auscultation anteriorly. ABDOMEN: Obese, soft, nontender, nondistended. NEURO AND PSYCH: Alert and oriented to person, place, and time. Normal affect. INPATIENT MEDICATIONS: Reviewed. LABORATORY DATA: Reviewed. TELEMETRY DATA: Reviewed, shows paced rhythm. ASSESSMENT: 1. Hyponatremia. 2. Presyncope. 3. Diabetes. 4. Hypertension. 5. Hyperlipidemia. 6. History of pacemaker placement. 7. History of atrial fibrillation. 8. History of peripheral arterial disease, status post amputation. 9. History of coronary artery disease, status post stent placement. PLAN: Rule out for acute MN. EKG and telemetry show paced rhythm. Blood pressure is stable. We will review the echocardiogram and interrogate the device also presents any arrhythmias or abnormalities. Presyncopal event was likely secondary to dehydration and orthostatic hypotension likely, now significantly improved after some IV fluids. Thank you for this consult. We will continue to follow. MD DENYS Donohue/REVA /[id number]
[2019-06-04] VITALS (7 sets, daily range): BP systolic 96–126; BP diastolic 56–72
[2019-06-04] MEDS: FLUTICASONE PROPIONATE 220MCG INH INH SCH ×2 (07:00→19:00)
--- NOTE | 2019-06-04 07:00 | NUR ---
BEDSIDE SHIFT REPORT GIVEN TO THE ONCOMING RN.STABLE CONDITION.
[2019-06-04 07:10] LABS: ANION GAP 13.8 mmol/L (8-16); BLOOD UREA NITROGEN 12 mg/dL (7-26); BUN/CREATININE RATIO 15 (6-25); CALCIUM 8.5 mg/dL (8.4-10.2); CARBON DIOXIDE 24 mmol/L (22-29); CHLORIDE 103 mmol/L (98-107); CREATININE, SERUM 0.79 mg/dL (0.72-1.25); EST GLOMERULAR FILTRATION RATE > 60 ML/MIN (60-); GLUCOSE 164 mg/dL (74-118); POTASSIUM 3.8 mmol/L (3.5-5.1); SODIUM 137 mmol/L (136-145)
--- NOTE | 2019-06-04 08:01 | Progress Note ---
DATE: SUBJECTIVE: This is a 64-year-old male, who came with near syncope. The patient received ample amount of fluids yesterday. The patient is feeling better. No shortness of breath, and weakness is better. No chest pain. No shortness of breath. No nausea, vomiting, or diarrhea. No constipation. No rectal bleeding. Needs physical therapy and rehabilitation evaluation. OBJECTIVE: VITAL SIGNS: Temperature is 97.1, pulse of 76, respiration of 20, blood pressure is 112/67. HEENT: Normocephalic, atraumatic. The patient has poor dental hygiene. CVS: S1 and S2 normal. Regular rate and rhythm. ABDOMEN: Nontender and nondistended. EXTREMITIES: No clubbing. No cyanosis. Positive for bilateral lymphedema and is in wrapping. LABORATORY VALUES: From today hemoglobin of 12.3, hematocrit 35.3. Chemistries are pending. Glucoses have been running in the . ASSESSMENT: 1. Hyponatremia, corrected. 2. Near syncope better, probably orthostatic. 3. Diabetes mellitus, uncontrolled. Restart diabetic medications and insulin. 4. Hypertension. Continue with antihypertensive. 5. History of pacemaker. The patient to be checked for the pacemaker and atrial fibrillation. 6. The patient with peripheral arterial disease with amputation. Continue monitoring the patient's wound care today. PLAN: Plan will be to do a physical therapy evaluation and possible SNF transfer when accepted. MD CANDICE Cordova/JOSEL /[id number]
[2019-06-04] MEDS: CLOPIDOGREL BISULFATE 75 MG TAB PO SCH (08:20)
[2019-06-04] MEDS: LISINOPRIL 10 MG TAB PO SCH (08:20)
[2019-06-04] MEDS: ASPIRIN 81 MG CHEW TAB PO SCH (08:20)
[2019-06-04] MEDS: SIMVASTATIN 20 MG TAB PO SCH (08:20)
[2019-06-04] MEDS: INSULIN REGULAR, HUMAN 100 UNIT/1 ML 3ML VIAL SQ SCH ×4 (08:20→20:45)
[2019-06-04] MEDS: FUROSEMIDE 40 MG TAB PO SCH (08:20)
[2019-06-04] MEDS: CEPHALEXIN 500 MG CAP PO SCH ×2 (08:20→16:25)
[2019-06-04] MEDS: SODIUM CHLORIDE 0.9% 1000ML 1,000 ML IV SCH (08:38)
--- NOTE | 2019-06-04 18:45 | NUR ---
rounded with night filler nurse, patient aware of change and in no distress. call damon within reach and bed in lowest position.
[2019-06-05 00:43] VITALS: BP 108/66
[2019-06-05 04:59] VITALS: BP 99/59
[2019-06-05] MEDS: SODIUM CHLORIDE 0.9% 1000ML 1,000 ML IV SCH (05:16)
--- NOTE | 2019-06-05 06:44 | NUR ---
SPOKE TO DR. BLACK AT THIS TIME. ORDERED TO CHANGE LISINOPRIL TO 2.5MG
--- NOTE | 2019-06-05 06:55 | Progress Note ---
DATE: SUBJECTIVE: 64-year-old male who came in with hyponatremia, near syncopal episode, hypertension, and history of pacemaker. Currently, the patient is feeling great. Does not want to go to the SNF at this time. The patient has been given benefits of physical therapy and need for continuous evaluation. He prefers to go home with home health. No chest pain. No shortness of breath. No nausea, vomiting, or diarrhea. No constipation. No rectal bleeding. The patient is currently on Keflex, clopidogrel, furosemide, insulin, lisinopril, simvastatin, and sodium chloride. OBJECTIVE: VITAL SIGNS: Temperature is 96.3, pulse of 62, respirations of 21, and blood pressure is 99/59. HEENT: Normocephalic and atraumatic. Pupils are reactive to light and accommodation. CVS: S1 and S2 normal. Pacemaker is in place. ABDOMEN: Nontender and nondistended. EXTREMITIES: With edema. ASSESSMENT: 1. Near syncope, possibly orthostatic. The patient has been advised to slowly stand up and move around slowly. No sudden jerky movements. 2. Hyponatremia, which is resolved. PLAN: Have home health and discharge the patient with home health with physical therapy. The patient's blood pressure has been trending on the lower side. We will cut down the lisinopril 2.5 mg and continue to monitor the patient's blood pressure. MD CANDICE Cordova/MODL /[id number]
--- NOTE | 2019-06-05 07:00 | NUR ---
bedside rounds complete no distress noted updated on poc vocied understanding, denies pain at this time, ivf infusing to l fa 20g no ss of infiltration noted, no other co voiced call light in reach will continue to monitor
[2019-06-05 07:26] VITALS: BP 113/58
[2019-06-05] MEDS: INSULIN REGULAR, HUMAN 100 UNIT/1 ML 3ML VIAL SQ SCH ×2 (07:30→11:22)
[2019-06-05 08:43] VITALS: BP 113/58
[2019-06-05] MEDS ORDERED: ONDANSETRON HCL 4 MG ORAL DISINTEGRATING TAB PO PRN (08:45)
[2019-06-05] MEDS ORDERED: LISINOPRIL 2.5 MG TAB PO SCH (09:00)
[2019-06-05] MEDS: ASPIRIN 81 MG CHEW TAB PO SCH (09:30)
[2019-06-05] MEDS: FUROSEMIDE 40 MG TAB PO SCH (09:31)
[2019-06-05] MEDS: CLOPIDOGREL BISULFATE 75 MG TAB PO SCH (09:31)
[2019-06-05] MEDS: CEPHALEXIN 500 MG CAP PO SCH (09:31)
[2019-06-05] MEDS: SIMVASTATIN 20 MG TAB PO SCH (09:34)
--- NOTE | 2019-06-05 10:10 | NUR ---
PT SPOKE WITH CASE MANAGEMENT RE: HOME HEALTH PT REFUSED HOME HEALTH AT THIS TIME, DUE TO MOVING OUT OF STATE WITH A NEPHEW THIS COMING WEEKEND. 06/09/19
--- NOTE | 2019-06-05 10:14 | NUR ---
CM MET W THE PT AT THE BEDSIDE W PT PRESENT. PT HAD JUST WALKED THE STAIRS W 4 POINT CANE. PER YULISSA Bar PHYSICAL THERAPY THE PT IS A MOD ASSIST AND DOES WELL WITH HIS CANE. DISCUSSED ORDER RECEIVED FOR HOME HEALTH. PT STATES HE WILL BE MOVING TO [place] WITH HIS NEPHEW THIS WEEKEND AND WILL BE SELLING HIS TOWNHOME HERE. STATES HE FEELS HE IS OK W/O HH. PT DECLINED HOME PT. STATES HE WILL NEED TRANSPORT HOME AND NEEDED TO MAKE SURE PRESCRIPTIONS WERE WRITTEN FOR HIS INSULIN SO HE WOULD BE COVERED UNTIL HE CAN GET A DOC IN [place]. INFORMED JAMIA JONES OF PT'S REQUEST FOR RIDE HOME AND MED CONCERN. INFORMED OF HH NOT NEEDED AT THIS TIME.
[2019-06-05] MEDS ORDERED: LISINOPRIL2.5 MG PO (10:18)
[2019-06-05] MEDS ORDERED: LANTUS 3ML100 UNITS/ SQ (10:19)
[2019-06-05] MEDS ORDERED: [UNRECOGNIZED DRUG - OTHER] SQ (10:19)
[2019-06-05] MEDS ORDERED: HUMALOG100 UNIT/1 SQ (10:26)
[2019-06-05 11:26] VITALS: BP 146/66
[2019-06-05 11:34] VITALS: BP 146/66
== END 2019-06-05 11:53 | disposition home or self-care (01) | DRG 641 ==
LOC: ER 22:10 → ERHOLD 23:53 → MED/SURG 06-03 00:56 → OBSVTOIN 06-04 07:21
PROVIDERS: ADMIT Internal Medicine; ATTEND Internal Medicine
DX: E87.1 Hypo-osmolality and hyponatremia (principal); E11.65 Type 2 diabetes mellitus with hyperglycemia; Z95.0 Presence of cardiac pacemaker; I48.91 Unspecified atrial fibrillation; Z79.01 Long term (current) use of anticoagulants; E11.51 Type 2 diabetes mellitus with diabetic peripheral angiopathy without gangrene; Z79.4 Long term (current) use of insulin; Z89.422 Acquired absence of other left toe(s); I25.10 Atherosclerotic heart disease of native coronary artery without angina pectoris; Z95.5 Presence of coronary angioplasty implant and graft; J44.9 Chronic obstructive pulmonary disease, unspecified
CPT/HCPCS: 36415; 70450; 71045; 80048; 80053; 81001; 82550; 82553; 82948; 83036; 83880; 84436; 84443; 84479; 84484; 85025; 93005; 93306; 93880; 97139; 99284; G0378; J7030